=== PATIENT | female | born 1995 | race African-American/Black ===

== ENCOUNTER 2021-01-08 10:56 | Emergency (ER) | payer OTHER, SELFPAY ==
[2021-01-08] VITALS (13 sets, daily range): BP systolic 111–148; BP diastolic 73–89; PULSE 70–91; RESP 13–26; TEMP 36.4; O2SAT 93–100
--- NOTE | ~2021-01-08 | XR_ITS ---
EXAMINATION: XR chest 1V portable DATE: 01/08/2021 11:49 INDICATION: Mid chest pain. TECHNIQUE: frontal view of the chest was obtained. COMPARISON: None FINDINGS: The lungs are clear with no focal airspace opacities, pulmonary edema, pleural effusion or pneumothor ax. Borderline heart size accounting for AP technique. Mediastinal silhouette is normal. Moderate tho racic dextroscoliosis. 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 IMPRESSION: 1. Borderline heart size conifer AP technique. No acute cardiopulmonary disease. Reviewed, dictated and finalized at location A. IMPRESSION: 1. Borderline heart size conifer AP technique. No acute cardiopulmonary disease .
--- NOTE | 2021-01-08 11:18 | ECG_ITS ---
Measurements Intervals [place] Rate: 76 P: 13 PA: 161 QRS: 12 QRSD: 102 T: 10 QT: 381 QTc: 429 Interpretive Statements SINUS RHYTHM MINIMAL Q WAVES- HIGH LATERAL LEADS BORDERLINE T WAVE ABNORMALITY- ANT/INF LEADS BASELINE ARTIFACT- I, II, AVR, AVL, AVF BORDERLINE ECG Electronically Signed On 01-08-2021 16:51:22 CDT by Mazin Zaldivar D.O.
[2021-01-08] MEDS: KETOROLAC 30 MG/ML VIAL (*BKC) IV PUSH (11:42)
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
--- NOTE | 2021-01-08 12:10 | PC.NURSE ---
Attempt at blood collection unsuccessful per this RN. Pt on phone throughout EKG and labs face-timing with her s.o. pt gives permission for information to be shared with him.
[2021-01-08 12:42] LABS: Basophils Percent Auto 0.4 % (0.2-1.2); Eosinophils Percent Auto 0.5 % (0-4.4); Hematocrit 35.2 % (37.0-47.0); Hemoglobin 10.8 g/dL (12.0-15.0); Immature Granulocyte Absolute 0.03 K/mm3 (0.00-0.031); Immature Granulocyte Percent A 0.4 % (0-0.5); Lymphocytes Absolute Auto 1.29 K/mm3 (0.9-3.2); Lymphocytes Percent Auto 15.7 % (18.3-44.2); Mean Corpuscular HGB Conc 30.7 g/dl (32-36); Mean Corpuscular Hemoglobin 27.3 pg (26-34); Mean Corpuscular Volume 89.1 fl (80-100); Mean Platelet Volume 11.4 fl (7.4-10.4); Monocytes Absolute Auto 0.6 K/mm3 (0.1-0.6); Monocytes Percent Auto 7.1 % (2.6-8.5); Neutrophils Absolute Auto 6.2 K/mm3 (1.3-6.7); Neutrophils Percent Auto 75.9 % (45.5-73.1); Platelet Count Result 259 k/mm3 (150-375); Red Blood Count 3.95 M/mm3 (4.2-5.4); Red Cell Distribution Width 13.8 % (11.5-14.5); White Blood Count 8.2 K/mm3 (4.5-10.0)
[2021-01-08 12:52] LABS: INR 0.9; Partial Thromboplastin Time 31.9 SECONDS (22.3-36.8); Prothrombin Time 13.2 Seconds (11.1-14.7)
[2021-01-08 12:55] LABS: D Dimer 0.39 ug/mL (<0.48)
[2021-01-08 12:56] LABS: Alanine Aminotransferase 19 U/L (4-35); Albumin Level 3.8 g/dL (3.5-5.1); Alkaline Phosphatase 69 U/L (38-126); Anion Gap 2 mmol/L (8-16); Aspartate Amino Transferase 27 U/L (14-36); Bilirubin,Total 1.2 mg/dL (0.2-1.3); Blood Urea Nitrogen 12 mg/dL (7-17); Calcium 9.2 mg/dL (8.4-10.2); Carbon Dioxide 31 mmol/L (22-30); Chloride 104 mmol/L (98-107); Estimated CRCL calculation 137 ml/min; Estimated Glomerular Filt Rate > 60; Glucose 97 mg/dL (65-105); Lipase 21 U/L (23-300); Sodium 137 mmol/L (137-145)
[2021-01-08 12:58] LABS: Add Urine Microscopic? YES; Appearance Urine Cloudy (Clear); Bacteria Urine Trace /hpf; Bilirubin Urine Negative (Negative); Blood Urine Negative (Negative); Color Urine Yellow (Yellow); Glucose Urine UA Negative (Negative); Ketones Urine Negative (Negative); Leukocyte Esterase Ur Negative LEU/UL (Negative); Mucus Urine Few /lpf; Nitrate Urine Negative (Negative); Protein Urine Negative (Negative); RBC Urine 0-2 /hpf (0-2); Specific Grav Ur 1.018 (1.001-1.035); Squamous Epithelial Cell Urine Many /hpf (Few)
[2021-01-08 13:08] LABS: Troponin I < 0.012 ng/mL (0.000-0.034)
== END 2021-01-08 14:06 | disposition home or self-care (01) ==
PROVIDERS: Emergency Medicine Emergency Medical Services; Emergency Provider Emergency Medicine; PCP Family Medicine
DX: R07.2 Precordial pain (principal); E66.9 Obesity, unspecified; Z68.32 Body mass index [BMI] 32.0-32.9, adult; R94.31 Abnormal electrocardiogram [ECG] [EKG]
CPT/HCPCS: 36415; 71045; 80053; 81001; 81025; 83690; 84484; 85025; 85380; 85610; 85730; 87077; 87086; 87088; 87186; 93005; 96374; 99284; J1885

== ENCOUNTER 2022-07-13 14:19 | Emergency (ER) | payer OTHER, SELFPAY ==
--- NOTE | 2022-07-13 | ECG_ITS ---
Measurements Intervals [place] Rate: 57 P: 49 IA: 154 QRS: 26 QRSD: 94 T: -25 QT: 432 QTc: 423 Interpretive Statements SINUS BRADYCARDIA T WAVE ABNORMALITY IN ANTERIOR LEADS- CONSIDER ISCHEMIA ABNORMAL ECG COMPARED TO ECG 01/08/2021 11:59:40 HEART RATE HAS DECREASED T WAVE ABNORMALITY IN ANTERIOR LEADS- CONSIDER ISCHEMIA NOW PRESENT Electronically Signed On 07-14-2022 11:13:43 CDT by Mazin Zaldivar D.O.
[2022-07-13 14:33] VITALS: BP 113/64; PULSE 65; RESP 18; TEMP 36.3; O2SAT 99
--- NOTE | 2022-07-13 15:17 | ED.CHESTPAIN ---
HPI - Chest Pain General Chief Complaint: Chest Pain Stated Complaint: Chest Pain Time Seen by Provider: 07/13/22 15:10 Source: patient, RN notes reviewed and old records reviewed Mode of arrival: ambulatory Limitations: no limitations History of Present Illness HPI narrative: 26 year old female presents to [facility] care with complaints of 3 day history of intermittent sternal chest pain and tightness with orthopnea, she reports past history of pericarditis. Patient reports that she went by ambulance to [facility] last evening and left before she was given any final diagnosis of her pain, states that she had labs and EKG, and chest xray done and had negative COVID. Patient states that she sat in waiting area for many hours and it was getting dark so she went home. Patient able to pull information off of her portal and reviewed lab data with HGB 10,7/HCT 35.0 WBC 7.6, high sensitivity troponin <4. EKG data similar reading as of EKG done in clinic. Patient denies any nausea or vomiting or any dizziness, speaking in full sentences with no noted dyspnea SAO2 99% on room air. MD complaint: chest pain and other (orthopnea) Pertinent past history: coronary artery disease and other (pericarditis) Pain scale (0-10): 7 Treatment prior to arrival: none Related Data Allergies Allergy/AdvReac Type Severity Reaction Status Date / Time No Known Allergies Allergy Verified 01/08/21 11:06 Review of Systems Review of Systems: CONSTITUTIONAL: Denies fever, chills, or sweats. EYES: Denies visual changes, redness, or discharge. ENT: Denies rhinorrhea, congestion, sore throat, or otalgia. CARDIOVASCULAR: Positive for 3 day history of sternal chest pain, no palpitations, or edema. RESPIRATORY: Denies cough or dyspnea.reports orthopnea GASTROINTESTINAL: Denies abdominal pain, nausea, vomiting, or diarrhea. GENITOURINARY: Denies dysuria or hematuria. SKIN: Denies rash or itching. MUSCULOSKELETAL: Denies back pain, joint pain, or myalgia. NEUROLOGIC: Denies headache, numbness, or weakness. PSYCHIATRIC: Denies anxiety or depression. All systems reviewed & are unremarkable except as noted in HPI and below PMFSH Past Medical History Medical History (Updated 07/16/22 @ 00:00 by Background Daemon) Obesity Pericarditis Social History Social History Smoking status: Never smoker Gender identity (if verbalized by the patient): Female Comments At time of signature, agree with nursing past medical, surgical, social and family history. There is no relevant family history pertinent to the presenting complaint Exam Narrative: GENERAL: Well-appearing, well-nourished, and in no acute distress. HEAD: Normocephalic, atraumatic. EYES: PERRLA and EOMI. ENT: Nares clear, no rhinorrhea or epistaxis. Mucous membranes moist.TM's normal with good light reflex, throat pink with no lesions or swelling NECK: Supple.No lymphadenopathy CHEST: Clear to auscultation. No respiratory distress.SAO2 99% on room air HEART: Regular rate and rhythm. No murmur heard.no rubs or muffled heart sounds. Normal peripheral pulses. ABDOMEN: Soft, nontender, nondistended, normal active bowel sounds. EXTREMITIES: Normal range of motion. No edema. SKIN: Warm, dry, no rash. NEURO: No focal deficits. Alert and oriented x3. Course Course Level of Care: Express Care Visit Vital Signs Vital signs: Vital Signs Temperature 36.3 C L 07/13/22 14:33 Pulse Rate 65 07/13/22 14:33 Respiratory Rate 18 07/13/22 14:33 Blood Pressure 113/64 07/13/22 14:33 Pulse Oximetry 99 07/13/22 14:33 Oxygen Delivery Room Air 07/13/22 14:33 Temperature 36.3 C L 07/13/22 14:33 Pulse Rate 65 07/13/22 14:33 Respiratory Rate 18 07/13/22 14:33 Blood Pressure 113/64 07/13/22 14:33 Pulse Oximetry 99 07/13/22 14:33 Oxygen Delivery Room Air 07/13/22 14:33 Transfer Transfered to: [facility]: Other (private car
== END 2022-07-13 16:10 | disposition short-term general hospital (02) ==
LOC: EXPCOLL 14:26
PROVIDERS: Emergency Provider Registered Nurse; PCP Family Medicine
DX: R07.9 Chest pain, unspecified (principal); I25.10 Atherosclerotic heart disease of native coronary artery without angina pectoris; E66.9 Obesity, unspecified; Z68.31 Body mass index [BMI] 31.0-31.9, adult; R94.31 Abnormal electrocardiogram [ECG] [EKG]
CPT/HCPCS: 93005; 99213; G0463

== ENCOUNTER 2022-07-13 16:43 | Emergency (ER) | payer OTHER, SELFPAY ==
[2022-07-13] VITALS (9 sets, daily range): BP systolic 95–145; BP diastolic 62–72; PULSE 52–65; RESP 14–23; TEMP 36.2; O2SAT 100
--- NOTE | ~2022-07-13 | XR_ITS ---
XR chest 2V 07/13/2022 17:24 Indication: Chest pain for 3 days Procedure: PA and lateral views the chest Comparison: 01/08/2021 Findings: Cardiomegaly. Small pleural effusions. Left basilar atelectasis. No edema or pneumothorax. 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 There is scoliosis. Impression: 1: Left basilar atelectasis. 2: Small pleural effusions. Reviewed, dictated and finalized at location A. Impression: 1: Left basilar atelectasis. 2: Small pleural effusions.
--- NOTE | 2022-07-13 16:48 | ECG_ITS ---
Measurements Intervals [place] Rate: 58 P: 46 [place]: 147 QRS: 22 QRSD: 102 T: 7 QT: 425 QTc: 418 Interpretive Statements SINUS BRADYCARDIA T WAVE ABNORMALITY IN ANTERIOR LEADS- CONSIDER ISCHEMIA ABNORMAL ECG COMPARED TO ECG 01/08/2021 11:59:40 SINUS BRADYCARDIA NOW PRESENT T WAVE ABNORMALITY IN ANTERIOR LEADS- CONSIDER ISCHEMIA NOW PRESENT Electronically Signed On 07-13-2022 17:04:07 CDT by Mazin Zaldivar D.O.
[2022-07-13 17:18] LABS: Basophils Percent Auto 0.4 % (0.2-1.2); Eosinophils Absolute Auto 0.1 K/mm3 (0-0.3); Eosinophils Percent Auto 1.2 % (0-4.4); Hematocrit 36.9 % (37.0-47.0); Hemoglobin 11.2 g/dL (12.0-15.0); Immature Granulocyte Absolute 0.01 K/mm3 (0.00-0.031); Immature Granulocyte Percent A 0.1 % (0-0.5); Lymphocytes Absolute Auto 1.75 K/mm3 (0.9-3.2); Lymphocytes Percent Auto 23.2 % (18.3-44.2); Mean Corpuscular HGB Conc 30.4 g/dl (32-36); Mean Corpuscular Hemoglobin 27.3 pg (26-34); Mean Corpuscular Volume 89.8 fl (80-100); Mean Platelet Volume 12.5 fl (7.4-10.4); Monocytes Absolute Auto 0.5 K/mm3 (0.1-0.6); Monocytes Percent Auto 6.9 % (2.6-8.5); Neutrophils Absolute Auto 5.1 K/mm3 (1.3-6.7); Neutrophils Percent Auto 68.2 % (45.5-73.1); Platelet Count Result 276 k/mm3 (150-375); Red Blood Count 4.11 M/mm3 (4.2-5.4); Red Cell Distribution Width 14.6 % (11.5-14.5); White Blood Count 7.5 K/mm3 (4.5-10.0)
[2022-07-13 17:34] LABS: Alanine Aminotransferase 15 U/L (6-35); Albumin Level 4.6 g/dL (3.5-5.1); Alkaline Phosphatase 70 U/L (38-126); Anion Gap 12 mmol/L (8-16); Aspartate Amino Transferase 20 U/L (14-36); Bilirubin,Total 0.9 mg/dL (0.2-1.3); Blood Urea Nitrogen 14 mg/dL (7-17); Calcium 9.4 mg/dL (8.4-10.2); Carbon Dioxide 29 mmol/L (22-30); Chloride 99 mmol/L (98-107); Estimated Glomerular Filt Rate > 60; Glucose 105 mg/dL (65-110); Lipase 56 U/L (23-300); Potassium 3.8 mmol/L (3.4-5.0); Sodium 140 mmol/L (137-145)
--- NOTE | 2022-07-13 18:00 | PC.NURSE ---
EKG and lab draw delayed due to pt facetiming and not getting off her phone.
[2022-07-13 18:04] LABS: Troponin I < 0.012 ng/mL (0.000-0.034)
--- NOTE | 2022-07-13 18:55 | PC.NURSE ---
Dr. Rodriguez at bedside to assess pt.
--- NOTE | 2022-07-13 19:05 | ED.GENADULT ---
HPI - General Adult General Chief complaint: Chest Pain Stated complaint: Chest Pain Time Seen by Provider: 07/13/22 18:33 History of Present Illness HPI narrative: This is a 26-year-old female with a history of pericarditis presenting to ED with a chief complaint of chest pain. Patient states that she has been having chest pain for 1 week. She describes as a discomfort in the center of her chest. It is nonradiating. 6/10 in intensity it is worse with palpation. It is worse with movement. Patient says it gets worse when she lays flat. Patient has a history of pericarditis in the past. Patient went to [facility] the other day and had lab work obtained. These records were reviewed on her portal in all were within normal limits including CBC, CMP, high sensitivity troponin, EKG and chest x-rays. The patient then left before she was discharged because it was dark outside and she did want to be in [place]. Patient then went today to an urgent care where they are diagnostic capability was limited due to the facility. She was then sent here for an echocardiogram to evaluate for pericarditis /myocarditis. Related Data Allergies Allergy/AdvReac Type Severity Reaction Status Date / Time No Known Allergies Allergy Verified 01/08/21 11:06 Review of Systems Review of Systems: CONSTITUTIONAL: Denies night sweats. EYES: No eye pain ENT: Denies rhinorrhea CARDIOVASCULAR: Denies palpitations RESPIRATORY: Denies hemoptysis GASTROINTESTINAL: Denies hematemesis GENITOURINARY: Denies hematuria. SKIN: Denies rash MUSCULOSKELETAL: Denies myalgia. NEUROLOGIC: Denies weakness. PSYCHIATRIC: Denies delusions PMF Past Medical History Medical History (Updated 07/13/22 @ 19:25 by Evan Rodriguez MD) Obesity Pericarditis Social History Social History Smoking status: Never smoker Gender identity (if verbalized by the patient): Female Exam Narrative: APPEARANCE: No apparent distress. Head atraumatic. EYES: PERRLA/EOMI, NOSE: Normal no drainage NECK: Supple, Trachea midline RESPIRATORY: CTAB, No increased work of breathing. CARDIOVASCULAR: S1S2 appreciated, Patient has tenderness to palpation over the sternum. She has no overlying skin changes. She has no peripheral edema. no pericardial friction rub ABDOMINAL: Soft, nontender, nondistended, MUSCULOSKELETAl: No obvious deformities NEURO: Alert. Moving 4/4 extremities SKIN:: Warm, dry. Normal color PSYCHIATRIC: Normal affect Course Vital Signs Vital signs: Vital Signs Temperature 97.2 F L 07/13/22 17:30 Pulse Rate 59 L 07/13/22 17:30 Respiratory Rate 14 07/13/22 17:30 Blood Pressure 145/67 H 07/13/22 17:30 Pulse Oximetry 100 07/13/22 17:30 Temperature 97.2 F L 07/13/22 17:30 Pulse Rate 62 07/13/22 18:50 Respiratory Rate 17 07/13/22 18:33 Blood Pressure 119/72 07/13/22 18:20 Pulse Oximetry 100 07/13/22 18:50 Oxygen Delivery Room Air 07/13/22 18:50 Medical Decision Making MDM Narrative Medical decision making narrative: this is a 26-year-old female with history of pericarditis presenting ED with chest pain. The patient's history and physical is more consistent with musculoskeletal pain but she is highly anxious about having pericarditis again. Point of care echocardiogram was performed. Parasternal long, short axis, apical 4 and subxiphoid views were obtained. There is no evidence of pericardial effusion in any view. Ejection fraction is normal per ePSS. There is no evidence of right heart strain. IVC was depleted w/ >50% respiratory variation. Patient's laboratory studies were unremarkable. Her she has no white blood cell count. Her BNP was within normal limits. The patient is afebrile with normal vital signs. High since the troponins were negative yesterday [facility]. Normal sensitivity troponins here are negative. patient is PERC negative. Chest x-ray s
[2022-07-13] MEDS: KETOROLAC 15 MG/ML VIAL (*BKC) IV PUSH (19:18)
[2022-07-13] MEDS: ACETAMINOPHEN 500 MG TABLET 1000 MG PO (19:19)
[2022-07-13 19:34] LABS: NT Pro B Type Natriuretic Pept 52 pg/mL (5-100)
== END 2022-07-13 20:36 | disposition home or self-care (01) ==
PROVIDERS: Emergency Medicine; Emergency Provider Emergency Medicine; PCP Family Medicine
DX: R07.9 Chest pain, unspecified (principal); E66.9 Obesity, unspecified; Z68.31 Body mass index [BMI] 31.0-31.9, adult; I31.9 Disease of pericardium, unspecified; R00.1 Bradycardia, unspecified; R94.31 Abnormal electrocardiogram [ECG] [EKG]
CPT/HCPCS: 36415; 71046; 80053; 83690; 83880; 84484; 85025; 93005; 96374; 99284; A9270; J1885

== ENCOUNTER 2025-08-05 10:28 | Emergency (ER) | payer OTHER, SELFPAY ==
--- OUTSIDE RECORDS SUMMARY | 2025-08-04 21:50 | XMS_ITS | Encounter Summary ---
Author Organization 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 5/10 pain. Hasn't taken anything for symptoms. Denies N/V/D or dizziness. Encounter Details Date Type Department Care Team ([facility] Contact Info) Description 08/04/2025 9:50 PM CDT - 08/04/2025 9:58 PM CDT Emergency [facility] [address] [place] [id number] Chest pain, unspecified type Discharge Disposition: Left Against Medical Advice/Discontinued Care Social History Tobacco Use Types Packs/Day Years Used Date Smoking Tobacco: Never Smokeless Tobacco: Never Alcohol Use Standard Drinks/Week Comments Not Currently 0 (1 standard drink = 0.6 oz pur e alcohol) PHQ-2 Answer Date Recorded Patient Health Questionnaire-2 Score 0 01/18/2025 Comments No Sex and Gender Information Value Date Recorded Sex Assigned at Female 07/30/2024 1:34 AM CDT Legal Sex Female 2:58 PM CDT Gender Identity Female 07/30/2024 1:34 AM CDT Sexual Orientation Straight 07/30/2024 1: 34 AM CDT documented as of this encounter Last Filed Vital Signs Vital Sign Reading Time Taken Comments Blood Pressure 125/82 08/04/2025 6:26 PM CDT Pulse 74 08/04/2025 6:26 PM CDT Temperature 37.2 C (99 F) 08/04/2025 6:26 PM CDT Respiratory Rate 16 08/04/2025 6:26 PM CDT Oxygen Saturation 100% 08/04/2025 6:26 PM CDT Inhaled Oxygen Concentration - - Weight 81.6 kg (180 lb) 08/04/2025 6:26 PM CDT Height 165.1 cm (5' 5) 08/04/2025 6:26 PM CDT Body Mass Index 29.95 08/04/2025 6:26 PM CDT documented in this encounter Functional Status * Is person deaf or have serious hearing difficulty? Answer Date of Assessment Author No 10/12/2019 8:59 PM Ulises Posey APRN-DIONICIO * Is person blind or have serious difficulty seeing? Answer Date of Assessment Author No 10/12/2019 8:59 PM Ulises Posey APRN-DIONICIO * Does person have serious difficulty walking/climbing stairs? Answer Date of Assessment Author No 10/12/2019 8:59 PM Ulises Posey APRN-DIONICIO * Does person have difficulty dressing/bathing? Answer Date of Assessment Author No 10/12/2019 8:59 PM Ulises Posey APRN-DIONICIO * Does person have difficulty doing errands alone? Answer Date of Assessment Author No 10/12/2019 8:59 PM Ulises Posey APRN-DIONICIO documented as of this encounter Mental Status * Does person have difficulty concentrating/remembering/making decisions? Answer Entry Date Author No 10/12/2019 8:59 PM Ulises Posey APRN-ASSOCIATE MERCHANT documented in this encounter Medications at Time of Discharge famotidine (PEPCID) 20 MG tablet Take 1 tablet by mouth once daily 30 tablet 3 10/12/2019 fluconazole (Diflucan) 150 MG tablet Take 1 (one) tablet by mouth once daily 1 tablet 08/24/2022 ibuprofen (Motrin) 800 MG tablet Take 1 (one) tablet by mouth every 6 hours as needed for Pain 30 tablet 10/06/2022 ketorolac (Toradol) 10 MG tablet Take 1 (one) tablet by mouth every 6 hours as needed for Pain 20 tablet 06/06/2023 lidocaine (Lidoderm) 5 % patch Apply 1 (one) patch to skin once daily Apply patch to most painful area and remove after 12 hours. May reapply a new patch 12 hours later. 5 patch 06/06/2023 metaxalone (Skelaxin) 800 MG tablet Take 1 (one) tablet by mouth 3 times daily as needed for Muscle Spasms 21 tablet 06/06/2023 Vit-Fe Fumarate-FA ( VITAMIN) 28-0.8 MG tablet Take 1 tablet by mouth once daily documented as of this encounter ED Notes * Jae Davidaugustus - 08/04/2025 9:48 PM CDT Patient left walking with a steady gait and is A&O x4, patient signed and completed an AMA form. * Fadia Ardon PA-C - 08/04/2025 6:42 PM CDT Medical Screening Exam 08/04/2025 6:42 PM Provider contact with the patient Rosy Pierson CC: Chest Pain (BIBself CP x 2 days, stabbing pain when breathing and laying down. 5/10 pain. Hasn't taken anything for symptoms. Denies N/V/D or dizziness. ) Chief complaint narrative was entered by triage nurse, not by provider Provider in Triage HPI: Rosy Pierson is a 29 year old female PMH as noted below who presents with chest pain x 2 days, stabbing feeling worse with supine positron. Illness 3 weeks ago. Denies N/Vabdominal pain, FREIRE. Limited Chart History: Past Medical History[1] Past Surgical History[2] Medications[3] Allergies[4] PCP: JOLENE SMILEY (Above may be pending completion) Primary System Noted in HPI. All other systems reviewed and are negative. Vital Signs reviewed in Triage BP 125/82 Pulse 74 Temp 99 ??F (37.2 ??C) Resp 16 Ht 1.651 m (5' 5) Wt 81.6 kg (180 lb) SpO2 100% Pertinent Physical Findings: Constitutional: vitals as above, groomed non toxic Head: Head normocephalic, atraumatic Eyes: conjunctiva clear ENT: no rhinorrhea Resp: respirations even and unlabored, CV: Heart RRR, Abd: nondistended Skin: warm, dry,color normal for ethnicity MSK: ambulatory, moves all extremities Neuro: A&O x 3, Psych: Normal affect Complete physical exam is limited due to patient sitting in up right position in chair MDM: I have reviewed all lab and imaging resulted ordered during this visit and available at the time ofthis note. Triage notes and available nursing notes reviewed. Previous medical record reviewed whenavailable. Management options include but not limited to: physical exam, laboratory testing, discussion with other providers. Clinical Impression: Chest pain Based on the Medical Screening Exam performed and diagnostic tests at this time, further evaluationis indicated and will be performed. Patient will be transferred to a main ED room when one is available and care will be transferred to ER provider. Fadia Ardon PA-C [1] Past Medical History: Diagnosis Date Scoliosis [2] No past surgical history on file. [3] Current Facility-Administered Medications Medication Dose Route Frequency Provider Last Rate Last Admin 0.9% NaCl injection 3 mL 3 mL Intracatheter q8h Fadia Ardon PA-C And 0.9% NaCl injection 1-10 mL 1-10 mL Intracatheter PRN Fadia Ardon PA-C acetaminophen (Tylenol) tablet 1,000 mg 1,000 mg Oral Now Fadia Ardon PA-C Current Outpatient Medications Medication Sig Dispense Refill famotidine (PEPCID) 20 MG tablet Take 1 tablet by mouth once daily 30 tablet 3 fluconazole (Diflucan) 150 MG tablet Take 1 (one) tablet by mouth once daily 1 tablet 0 ibuprofen (Motrin) 800 MG tablet Take 1 (one) tablet by mouth every 6 hours as needed for Pain 30 tablet 0 ketorolac (Toradol) 10 MG tablet Take 1 (one) tablet by mouth every 6 hours as needed for Pain 20 tablet 0 lidocaine (Lidoderm) 5 % patch Apply 1 (one) patch to skin once daily Apply patch to most painful area and remove after 12 hours. May reapply a new patch 12 hours later. 5 patch 0 metaxalone (Skelaxin) 800 MG tablet Take 1 (one) tablet by mouth 3 times daily as needed for MuscleSpasms 21 tablet 0 Vit-Fe Fumarate-FA ( VITAMIN) 28-0.8 MG tablet Take 1 tablet by mouth once daily [4] No Known Allergies documented in this encounter Plan of Treatment Pending Results Name Type Priority Associated Diagnoses Date /Time EKG 12-Lead ECG Routine Chest pain, unspecified type 08/04/2025 6:29 PM CDT documented as of this encounter Procedures Procedure Name Priority Date/Time Associated Diagnosis Comments CARDIAC EKG ORDER 08/05/2025 11: 35 AM CDT TROPONIN-I HIGH SENSITIVE REFLEX 1HOUR Timed 08/04/2025 9:35 PM CDT TROPONIN-I HIGH SENSITIVE BASELINE + 1HR STAT 08/04/2025 7:00 PM CDT CBC W AUTO DIFFERENTIAL STAT 08/04/2025 7:00 PM CDT COMPREHENSIVE METABOLIC PANEL STAT 08/04/2025 7:00 PM CDT HCG BETA BLOOD QUANTITATIVE STAT 08/04/2025 7:00 PM CDT MAGNESIUM BLOOD STAT 08/04/2025 7:00 PM CDT EKG 12-LEAD Routine 08/04/2025 6:29 PM CDT Chest pain, unspecified type documented in this encounter Results * CARDIAC EKG ORDER (08/05/2025 11:35 AM CDT) Narrative 08/05/2025 11:35 AM CDT Ordered by an unspecified provider. us Scanned Document CARDIAC SERVICES ORDERABLES Fin al Result * TROPONIN-I HIGH SENSITIVE REFLEX 1HOUR (08/04/2025 9:35 PM CDT) Troponin I High Sensitive <3 <=14 ng/L 08/04/2025 10:15 PM CDT [facility] Delta Troponin I HS 08/04/2025 10:15 PM CDT [facility] Comment:Delta value intentio anisha not calculated. Baseline to 1 hour specimen collection interval exceeded. Blood BLOOD SPECIMEN / Unknown Venipuncture / Unknown 08/04/2025 9:35 PM CDT 08/04/2025 9:40 PM CDT Fadia Ardon PA-C LAB - CHEMISTRY ORDER TIM Final Result Performing Organization Address [facility] de Phone Number [address] [address], [facility] [phone] * HCG BETA BLOOD QUANTITATIVE (08/04/2025 7:00 PM CDT) [facility] Beta-hCG Total Quantitative <3 mIU/mL 08/04/2025 7:47 PM CDT [facility] Comment: HCG Numeric Result Interpretation: Non- Females: < 5 mIU/mL Post-Menopausal Females: < 7 mIU/mL This assay is cleared for use in the early detection of only. It is not approved for any other uses such as tumor marker screening, tumor marker monitoring, etc. and should not be used for any other purposes. Blood BLOOD SPECIMEN / Unknown Venipuncture / Unknown 08/04/2025 7:00 PM CDT 08/04/2025 7:14 PM CDT Fadia Ardon PA-C LAB - CHEMISTRY ORDER TIM Final Result Performing Organization Address [facility] Co de Phone Number [address] [address], [facility] [phone] * TROPONIN-I HIGH SENSITIVE BASELINE + 1HR (08/04/2025 7:00 PM CDT) [facility] Troponin I High Sensitive <3 <=14 ng/L 08/04/2025 7:47 PM CDT [facility] Blood BLOOD SPECIMEN / Unknown Venipuncture / Unknown 08/04/2025 7:00 PM CDT 08/04/2025 7:14 PM CDT Fadia Ardon PA-C LAB - CHEMISTRY ORDER TIM Final Result [address] [address], [facility] [phone] * MAGNESIUM BLOOD (08/04/2025 7:00 PM CDT) Magnesium 1.6 1.6 - 2.6 mg/dL 08/04/2025 7:44 PM T [facility] Blood BLOOD SPECIMEN / Unknown Venipuncture / Unknown 08/04/2025 7:00 PM CDT 08/04/2025 7:14 PM CDT Fadia Ardon PA-C LAB - CHEMISTRY ORDER TIM Final Result Performing Organization Address [facility]/ZIP Co de Phone Number [address] [address], [facility] [phone] * (ABNORMAL) COMPREHENSIVE METABOLIC PANEL (08/04/2025 7:00 PM CDT) BUN 14 7 - 26 mg/dL 08/04/2025 7:44 PM [facility] Creatinine 0.76 0.56 - 0.96 mg/dL 08/04/2025 7:44 PM [facility] Sodium 137 136 - 145 mmol/L 08/04/2025 7:44 PM [facility] Potassium 3.9 3.5 - 4.5 mmol/L 08/04/2025 7:44 PM [facility] Chloride 104 98 - 107 mmol/L 08/04/2025 7:44 PM [facility] CO2 24 22 - 29 mmol/L 08/04/2025 7:44 PM [facility] Glucose 113(H) 70 - 99 mg/dL 08/04/2025 7:44 PM [facility] Calcium 9.1 8.4 - 10.2 mg/dL 08/04/2025 7:44 PM [facility] Protein Total 7.1 6.0 - 8.3 g/dL 08/04/2025 7:44 PM [facility] Albumin 4.0 3.4 - 5.0 g/dL 08/04/2025 7:44 PM [facility] Bilirubin Total 0.9 0.2 - 1.2 mg/dL 08/04/2025 7:44 PM [facility] Alkaline Phosphatase 66 40 - 150 U/L 08/04/2025 7:44 PM [facility] ALT 15 5 - 55 U/L 08/04/2025 7:44 PM [facility] AST 16 5 - 34 U/L 08/04/2025 7:44 PM [facility] Anion Gap 9 6 - 16 08/04/2025 7:44 PM [facility] BUN/Creatinine Ratio 18 7 - 23 08/04/2025 7:44 PM [facility] Osmolality Calculated 285 275 - 295 mOsm/kg 08/04/2025 7:44 PM [facility] Albumin/Globulin Ratio 1.3 1.1 - 2.3 08/04/2025 7:44 PM [facility] eGFR by CKD-EPI >90 >=90 mL/min/1.7 3 m2 08/04/2025 7:44 PM [facility] Comment:Estimated Glomerular Filtration Rate (eGFR) calculated using the CKD-EPI Creatinine Equation (2020), per the National Kidney Foundation and [place] [employer]ph[employer] recommendations. Blood BLOOD SPECIMEN / Unknown Venipuncture / Unknown 08/04/2025 7:00 PM CDT 08/04/2025 7:14 PM CDT Fadia Ardon PA-C LAB - CHEMISTRY ORDER TIM Final Result [facility] [address] [place] [address], [facility] [phone] * (ABNORMAL) CBC W AUTO DIFFERENTIAL (08/04/2025 7:00 PM CDT) WBC 8.2 4.0 - 10.7 x10E9/L 08/04/2025 7:41 PM [facility] RBC Count 3.83(L) 3.90 - 5.20 x10E12/L 08/04/2025 7:41 PM [facility] Hemoglobin 10.4(L) 11.9 - 15.8 g/dL 08/04/2025 7:41 PM [facility] Hematocrit 33.2(L) 34.8 - 46.1 % 08/04/2025 7:41 PM [facility] MCV 86.7 80.0 - 98.0 fL 08/04/2025 7:41 PM [facility] MCH 27.2 26.7 - 33.6 pg 08/04/2025 7:41 PM [facility] MCHC 31.3(L) 31.7 - 36.3 g/dL 08/04/2025 7:41 PM [facility] RDW-CV 14.1 11.3 - 14.8 % 08/04/2025 7:41 PM [facility] Platelet Count 212 150 - 420 x10E9/L 08/04/2025 7:41 PM [facility] MPV 12.8(H) 7.8 - 11.4 fL 08/04/2025 7:41 PM [facility] Neutrophil % 65.4 41.0 - 74.0 % 08/04/2025 7:41 PM [facility] Lymphocyte % 26.2 17.0 - 47.0 % 08/04/2025 7:41 PM [facility] Monocyte % 7.0 3.0 - 11.0 % 08/04/2025 7:41 PM [facility] Eosinophil % 0.7 0.0 - 7.0 % 08/04/2025 7:41 PM [facility] Basophil % 0.2 0.0 - 1.6 % 08/04/2025 7:41 PM [facility] Immature Granulocytes % 0.5 0.0 - 1.0 % 08/04/2025 7:41 PM [facility] Neutrophil Absolute 5.36 1.60 - 7.50 x10E9/L 08/04/2025 7:41 PM [facility] Lymphocyte Absolute 2.15 1.00 - 4.40 x10E9/L 08/04/2025 7:41 PM CDT [facility] Monocyte Absolute 0.57 0.15 - 1.00 x10E9/L 08/04/2025 7:41 PM CDT [facility] Eosinophil Absolute 0.06 0.00 - 0.60 x10E9/L 08/04/2025 7:41 PM CDT [facility] Basophil Absolute 0.02 0.00 - 0.13 x10E9/L 08/04/2025 7:41 PM CDT [facility] Blood BLOOD SPECIMEN / Unknown Venipuncture / Unknown 08/04/2025 7:00 PM CDT 08/04/2025 7:14 PM CDT Fadia Ardon PA-C LAB - HEMATOLOGY [facility] [place] Final Result [facility] [address] [place] [address], [facility] [phone] documented in this encounter Visit Diagnoses Diagnosis Chest pain, unspecified type documented in this encounter Administered Medications Inactive Administered Medications - up to 3 most recent administrations Medication Order MAR Action Action Date Dose Rate Site 0.9% NaCl injection 1-10 mL 1-10 mL, Intracatheter, PRN, Other, peripheral line flush, Starting on Sat08/04/25 at 1841, Until Sat08/04/25 at 2259, Flush peripheral IV catheter with 1-10 mL of normal saline before and after medications and prn to clear blood from the line or to verify patency. 0.9% NaCl injection 3 mL 3 mL, Intracatheter, EVERY 8 HOURS, First dose on Sat08/04/25 at 2200, Until Discontinued, Flush peripheral IV catheter with 3 mL of normal saline every 8 hours. acetaminophen (Tylenol) tablet 1,000 mg 1,000 mg, Oral, NOW, 1 dose, On Sat08/04/25 at 1845, Patient preference for lesser PRN pain meds may be honored when the patient requests a less strong medication, a lower dose, or a less intrusive route of administration when the lesser drug, dose and route have been ordered for the patient. This patient request must be documented in the MAR. If both oral and IV options are ordered for the same pain severity, give oral first unless patient cannot tolerate oral intake. $ Given 08/04/2025 6:59 PM CDT 1,000 mg documented in this encounter Active and Recently Administered Medications Times are shown in CDT. Scheduled Medication Order 08/02/2025 08/03/2025 08/04/2025 0.9% NaCl injection 3 mL(Linked Group 1) 3 mL, Intracatheter, EVERY 8 HOURS, First dose on Sat08/04/25 at 2200, Until Discontinued, Flush peripheral IV catheter with 3 mL of normal saline every 8 hours. acetaminophen (Tylenol) tablet 1,000 mg (COMPLETED) 1,000 mg, Oral, NOW, 1 dose, On Sat08/04/25 at 1845, Patient preference for lesser PRN pain meds may be honored when the patient requests a less strong medication, a lower dose, or a less intrusive route of administration when the lesser drug, dose and route have been ordered for the patient. This patient request must be documented in the MAR. If both oral and IV options are ordered for the same pain severity, give oral first unless patient cannot tolerate oral intake. 185 ($ Given - Prov ider: Yossi Yuen RN) PRN Medication Order 08/02/2025 08/03/2025 08/04/2025 0.9% NaCl injection 1-10 mL(Linked Group 1) 1-10 mL, Intracatheter, PRN, Other, peripheral line flush, Starting on Sat08/04/25 at 1841, Until Sat08/04/25 at 2259, Flush peripheral IV catheter with 1-10 mL of normal saline before and after medications and prn to clear blood from the line or to verify patency. Linked Groups Order Group 1: SALINE LOCK, INSERT AND MAINTAIN (CANCELED) Routine, CONTINUOUS, Starting on Sat08/04/25 at 1845, Until Specified, New collection, Task Completed: Yes And 0.9% NaCl injection 3 mLJump to med 3 mL, Intracatheter, EVERY 8 HOURS, First dose on Sat08/04/25 at 2200, Until Discontinued, Flush peripheral IV catheter with 3 mL of normal saline every 8 hours. And 0.9% NaCl injection 1-10 mLJump to med 1-10 mL, Intracatheter, PRN, Other, peripheral line flush, Starting on Sat08/04/25 at 1841, Until Sat08/04/25 at 2259, Flush peripheral IV catheter with 1-10 mL of normal saline before and after medications and prn to clear blood from the line or to verify patency. documented in this encounter Care Teams Piped Buttonhole Machine Operator Relationship Specialty Start Date End Date Jolene Smiley [address] [place] [address] PCP - General 12/05/23 documented as of this encounter
--- NOTE | ~2025-08-05 | XR_ITS ---
EXAMINATION: XR chest 2V, 08/05/2025 11:00 CDT HISTORY: chest pain COMPARISON: No comparisons available. Technique: 2 views obtained. Findings: The lungs are clear, no effusion. No pneumothorax. Heart is normal size. Mediastinal and hilar contours are within normal limits. Scoliosis of the thoracic spine. Impression: No acute cardiopulmonary abnormality. Reviewed, dictated and finalized at location P. Impression: No acute cardiopulmonary abnormality.
[2025-08-05 10:29] VITALS: BP 127/68; PULSE 78; RESP 16; TEMP 36.4; O2SAT 98
--- NOTE | 2025-08-05 10:29 | ECG_ITS ---
Test Date: 2025-08-05 10:34:22 Measurements Intervals [place] Rate: 67 P: 30 MN: 149 QRS: 22 QRSD: 91 T: -4 QT: 393 QTc: 416 Interpretive Statements SINUS RHYTHM MODERATE T-WAVE ABNORMALITY, CONSIDER ANTERIOR ISCHEMIA BASELINE ARTIFACT- I, II, III, AVR ABNORMAL ECG No previous ECG available for comparison Electronically Signed On 08-05-2025 14:40:28 CDT by Mazin Zaldivar D.O.
[2025-08-05 10:49] LABS: Hematocrit 35.5 % (37.0-47.0); Hemoglobin 10.7 g/dL (12.0-15.0); Immature Granulocyte Percent A 0.3 % (0-0.5); Lymphocytes Absolute Auto 1.70 K/mm3 (0.9-3.2); Mean Corpuscular HGB Conc 30.1 g/dl (32-36); Mean Corpuscular Hemoglobin 26.9 pg (26-34); Mean Corpuscular Volume 89.2 fl (80-100); Nucleated Red Blood Cells Absolute Auto 0.000 K/mm3 (0.0-0.012); Nucleated Red Blood Cells Perc 0.0 % (0.0-0.2); Platelet Count Result 216 k/mm3 (150-375); Red Blood Count 3.98 M/mm3 (4.2-5.4); White Blood Count 7.5 K/mm3 (4.5-10.0)
[2025-08-05 11:05] LABS: Alanine Aminotransferase 20 U/L (6-35); Albumin Level 4.1 g/dL (3.5-5.1); Alkaline Phosphatase 69 U/L (38-126); Anion Gap 7 mmol/L (4-12); Aspartate Amino Transferase 25 U/L (14-36); Bilirubin,Total 1.3 mg/dL (0.2-1.3); Blood Urea Nitrogen 12 mg/dL (7-17); Calcium 9.1 mg/dL (8.4-10.2); Carbon Dioxide 27 mmol/L (22-30); Chloride 103 mmol/L (98-107); Estimated CRCL calculation 109 ml/min; Estimated Glomerular Filt Rate > 60; Glucose 99 mg/dL (65-110); Lipase 46 U/L (23-300); Potassium 4.0 mmol/L (3.4-5.0); Sodium 137 mmol/L (137-145); Total Protein 7.6 g/dL (6.3-8.2)
[2025-08-05 11:09] LABS: INR 1.0; Prothrombin Time 13.4 Seconds (11.1-14.7)
[2025-08-05 11:10] LABS: Partial Thromboplastin Time 30.5 Seconds (22.3-36.8)
[2025-08-05 11:12] LABS: Troponin I < 0.012 ng/mL (0.000-0.034)
--- NOTE | 2025-08-05 12:07 | ED_ITS ---
HPI - Chest Pain General Chief Complaint: Chest Pain <Ketty Shay PA-C - Last Filed: 08/05/25 19:15> Stated Complaint: chest pain <Ketty Shay PA-C - Last Filed: 08/05/25 19:15> Time Seen by Provider: 08/05/25 12:07 <Ketty Shay PA-C - Last Filed: 08/05/25 19:15> Focused HPI: This is a 29 year old female that presents to the ER for chest pain. Ongoing over the last couple of days. Worse with exertion, lying flat. Reports the pain is a pressure. Worse with breathing. No recent travel or surgery. GENERAL: Well-appearing, well-nourished, and in no acute distress. HEAD: Normocephalic, atraumatic. CHEST: Clear to auscultation. ?No respiratory distress. HEART: Regular rate and rhythm.? NEURO: ?Alert and oriented x3. Patient screened in triage and initial orders placed.? ?Additional care and disposition to be based upon?diagnostic testing and treatment. <Ketty Shay PA-C - Last Filed: 08/05/25 19:15> Focused HPI: This is a 29 year old female that presents to the ER for chest pain. Ongoing over the last couple of days. Worse with exertion, lying flat. Reports the pain is a pressure. Worse with breathing. No recent travel or surgery. GENERAL: Well-appearing, well-nourished, and in no acute distress. HEAD: Normocephalic, atraumatic. CHEST: Clear to auscultation. ?No respiratory distress. HEART: Regular rate and rhythm.? NEURO: ?Alert and oriented x3. Patient screened in triage and initial orders placed.? ?Additional care and disposition to be based upon?diagnostic testing and treatment. <SILVIA Peterson Last Filed: 08/05/25 17:39> Source: patient <SILVIA Peterson Last Filed: 08/05/25 17:39> Mode of arrival: ambulatory <SILVIA Peterson Last Filed: 08/05/25 17:39> Limitations: no limitations <Jannette Cunningham PA-C - Last Filed: 08/05/25 17:39> History of Present Illness HPI narrative: Agree with above HPI. Was seen at [facility] yesterday. Denies recent cough or cold symptoms. <Jannette Cunningham PA-C - Last Filed: 08/05/25 17:39> Related Data Allergies/Adverse Reactions: Allergies Allergy/AdvReac Type Severity Reaction Status Date / Time No Known Allergies Allergy Verified 01/08/21 11:06 <Ketty Shay PA-C - Last Filed: 08/05/25 19:15> Review of Systems 2 Review of Systems: All systems reviewed & are unremarkable except as noted in HPI. <Jannette Cunningham PA-C - Last Filed: 08/05/25 17:39> All systems reviewed & are unremarkable except as noted in HPI and below < Jannette Cunningham PA-C - Last Filed: 08/05/25 17:39> PMFSH Past Medical History Medical History: Medical History Pericarditis Obesity <Ketty Shay PA-C - Last Filed: 08/05/25 19:15> Social History Social History: Social History Smoking status: Never smoker Gender identity (if verbalized by the patient): Female <Ketty Shay PA-C - Last Filed: 08/05/25 19:15> Exam 2 Narrative: GENERAL: Well appearing, well-nourished, non-toxic, in no acute distress. HEAD: Normocephalic, atraumatic. RESPIRATORY: Airway patent, respirations nonlabored. Clear to auscultation bilaterally, no rales, rhonchi, wheezing. No focal lung sounds CARDIOVASCULAR: Regular rate and rhythm without murmurs, rubs, or gallops. MUSCULOSKELETAL: Moves all extremities. No gross deformities. Tenderness to palpation diffusely throughout midsternal chest, reproducing pain SKIN: Warm, dry, normal color. NEURO: A&O X3. Speech clear. Cranial nerves II-XII grossly intact. Steady gait. No ataxic movements. PSYCHIATRIC: Appropriate mood and affect. Normal interaction. <SILVIA Peterson Last Filed: 08/05/25 17:39> Course Vital Signs Vital signs: Vital Signs Temperature 97.6 F 08/05/25 10:29 Pulse Rate 78 08/05/25 10:29 Respiratory Rate 16 08/05/25 10:29 Blood Pressure 127/68 08/05/25 10:29 Pulse Oximetry 98 08/05/25 10:29 Temperature 97.6 F 08/05/25 10:29 Pulse Rate 63 08/05/25 14:15 Respiratory Rate 18 08/05/25 14:15 Blood Pressure 113/67 08/05/25 14:15 Pulse Oximetry 100 08/05/25 14:15 <SILVIA Fisher Last Filed: 08/05/25 19:15> Vital Signs Temperature 97.6 F 08/05/25 10:29 Pulse Rate 78 08/05/25 10:29 Respiratory Rate 16 08/05/25 10:29 Blood Pressure 127/68 08/05/25 10:29 Pulse Oximetry 98 08/05/25 10:29 Temperature 97.6 F 08/05/25 10:29 Pulse Rate 63 08/05/25 14:15 Respiratory Rate 18 08/05/25 14:15 Blood Pressure 113/67 08/05/25 14:15 Pulse Oximetry 100 08/05/25 14:15 <SILVIA Peterson Last Filed: 08/05/25 17:39> MDM - Chest Pain MDM Narrative Medical decision making narrative: EKG with some nonspecific ST changes. Baseline troponin negative HEART score 1 based on ekg, no other significant RFs for CAD D-dimer within normal range BNP WNL Chest x-ray clear Basic laboratory studies otherwise unremarkable 3 hour EKG without interval changes. 3 hour troponin undetectable. Very low suspicion for ACS at this time. Feel patient is safe for discharge home with outpatient follow-up with PCP for continued evaluation. Discussed possibility of costochondritis, patient is very tender along midsternal chest wall. Recommended she continue Tylenol/ibuprofen as needed for pain. Discussed return precautions. She voiced understanding. Discharged in stable condition. <SILVIA Peterson Last Filed: 08/05/25 17:39> Medical Records Data Attestation: I reviewed the patient's medical records. <Jannette Cunningham PA-C - Last Filed: 08/05/25 17:39> Lab Data Attestation: I reviewed the patient's lab results. <Jannette Cunningham PA-C - Last Filed: 08/05/25 17:39> Result diagrams: 08/05/25 10:40 08/05/25 10:40 <Ketty Shay PA-C - Last Filed: 08/05/25 19:15> Labs: Lab Results 08/05/25 08/05/25 Range/Units 10:40 14:04 WBC 7.5 (4.5-10.0) K/mm3 RBC 3.98 L (4.2-5.4) M/mm3 Hgb 10.7 L (12.0-15.0) g/dL Hct 35.5 L (37.0-47.0) % MCV 89.2 (80-100) fl MCH 26.9 (26-34) pg MCHC 30.1 L (32-36) g/dl RDW 14.2 (11.5-14.5) % Plt Count 216 (150-375) k/mm3 MPV 12.1 H (7.4-10.4) fl Immature Gran % (Auto) 0.3 (0-0.5) % Neut % (Auto) 69.5 (45.5-73.1) % Lymph % (Auto) 22.8 (18.3-44.2) % Tyrrell % (Auto) 6.2 (2.6-8.5) % Eos % (Auto) 0.8 (0-4.4) % Baso % (Auto) 0.4 (0.2-1.2) % Lymph # (Auto) 1.70 (0.9-3.2) K/mm3 Tyrrell # (Auto) 0.5 (0.1-0.6) K/mm3 Eos # (Auto) 0.1 (0-0.3) K/mm3 Baso # (Auto) 0.0 (0.0-0.1) K/mm3 Abs Immat Gran (auto) 0.02 (0.00-0.031) K/mm3 Absolute Neuts (auto) 5.2 (1.3-6.7) K/mm3 Absolute Nucleated RBC 0.000 (0.0-0.012) K/mm3 Nucleated RBC % 0.0 (0.0-0.2) % PT 13.4 (11.1-14.7) Seconds INR 1.0 APTT 30.5 (22.3-36.8) Seconds D-Dimer 0.42 (<0.48) ug/mL Sodium 137 (137-145) mmol/L Potassium 4.0 (3.4-5.0) mmol/L Chloride 103 (98-107) mmol/L Carbon Dioxide 27 (22-30) mmol/L Anion Gap 7 (4-12) mmol/L BUN 12 (7-17) mg/dL Creatinine 0.60 L (0.7-1.0) mg/dL Estim Creat Clear Calc 109 ml/min Estimated GFR > 60 (59 - ) Glucose 99 (65-110) mg/dL Calcium 9.1 (8.4-10.2) mg/dL Total Bilirubin 1.3 (0.2-1.3) mg/dL AST 25 (14-36) U/L ALT 20 (6-35) U/L Alkaline Phosphatase 69 (38-126) U/L Troponin I < 0.012 < 0.012 (0.000-0.034) ng/mL NT-Pro-B Natriuret Pep < 20 (19.9-100) pg/mL Total Protein 7.6 (6.3-8.2) g/dL Albumin 4.1 (3.5-5.1) g/dL Lipase 46 (23-300) U/L <Ketty Shay PA-C - Last Filed: 08/05/25 19:15> Lab Results 08/05/25 08/05/25 Range/Units 10:40 14:04 WBC 7.5 (4.5-10.0) K/mm3 RBC 3.98 L (4.2-5.4) M/mm3 Hgb 10.7 L (12.0-15.0) g/dL Hct 35.5 L (37.0-47.0) % MCV 89.2 (80-100) fl MCH 26.9 (26-34) pg MCHC 30.1 L (32-36) g/dl RDW 14.2 (11.5-14.5) % Plt Count 216 (150-375) k/mm3 MPV 12.1 H (7.4-10.4) fl Immature Gran % (Auto) 0.3 (0-0.5) % Neut % (Auto) 69.5 (45.5-73.1) % Lymph % (Auto) 22.8 (18.3-44.2) % Tyrrell % (Auto) 6.2 (2.6-8.5) % Eos % (Auto) 0.8 (0-4.4) % Baso % (Auto) 0.4 (0.2-1.2) % Lymph # (Auto) 1.70 (0.9-3.2) K/mm3 Tyrrell # (Auto) 0.5 (0.1-0.6) K/mm3 Eos # (Auto) 0.1 (0-0.3) K/mm3 Baso # (Auto) 0.0 (0.0-0.1) K/mm3 Abs Immat Gran (auto) 0.02 (0.00-0.031) K/mm3 Absolute Neuts (auto) 5.2 (1.3-6.7) K/mm3 Absolute Nucleated RBC 0.000 (0.0-0.012) K/mm3 Nucleated RBC % 0.0 (0.0-0.2) % PT 13.4 (11.1-14.7) Seconds INR 1.0 APTT 30.5 (22.3-36.8) Seconds D-Dimer 0.42 (<0.48) ug/mL Sodium 137 (137-145) mmol/L Potassium 4.0 (3.4-5.0) mmol/L Chloride 103 (98-107) mmol/L Carbon Dioxide 27 (22-30) mmol/L Anion Gap 7 (4-12) mmol/L BUN 12 (7-17) mg/dL Creatinine 0.60 L (0.7-1.0) mg/dL Estim Creat Clear Calc 109 ml/min Estimated GFR > 60 (59 - ) Glucose 99 (65-110) mg/dL Calcium 9.1 (8.4-10.2) mg/dL Total Bilirubin 1.3 (0.2-1.3) mg/dL AST 25 (14-36) U/L ALT 20 (6-35) U/L Alkaline Phosphatase 69 (38-126) U/L Troponin I < 0.012 < 0.012 (0.000-0.034) ng/mL NT-Pro-B Natriuret Pep < 20 (19.9-100) pg/mL Total Protein 7.6 (6.3-8.2) g/dL Albumin 4.1 (3.5-5.1) g/dL Lipase 46 (23-300) U/L <Jannette Cunningham PA-C - Last Filed: 08/05/25 17:39> Imaging Data Attestation: I personally reviewed and interpreted this imaging study as follows: < Jannette Cunningham PA-C - Last Filed: 08/05/25 17:39> Radiologist's impression: ITS Impressions Chest X-Ray 08/05/25 11:08 Impression: No acute cardiopulmonary abnormality. <Jannette Cunningham PA-C - Last Filed: 08/05/25 17:39> ECG Data EKG #1: Attestation: I personally reviewed and interpreted this ECG as follows: <Jannette Cunningham PA-C - Last Filed: 08/05/25 17:39> ECG completion date: 08/05/25 <Jannette Cunningham PA-C - Last Filed: 08/05/25 17:39> ECG completion time: 10:34 <Jannette Cunningham PA-C - Last Filed: 08/05/25 17:39> EKG Interpretation: normal rate (67), sinus rhythm and non-specific ST changes <SILVIA Peterson Last Filed: 08/05/25 17:39> Critical Care Time Critical Care Time Critical Care Time: No <SILVIA Fisher Last Filed: 08/05/25 19:15> Discharge Plan Discharge Clinical Impression: Atypical chest pain <SILVIA Fisher Last Filed: 08/05/25 19:15> Patient Disposition: Home <SILVIA Fisher Last Filed: 08/05/25 19:15> Condition: Stable <SILVIA Fisher Last Filed: 08/05/25 19:15> Instructions: Antibiotic Form, Chest Pain (ED), Costochondritis (ED) <SILVIA Fisher Last Filed: 08/05/25 19:15> Additional Instructions: Your work up here was reassuring against a cardiac cause of your chest pain. Continue Tylenol/ibuprofen as needed for pain. Follow up with your primary care doctor for further evaluation. Return to the ED for new or worsening concerns, severe pain, difficulty breathing, unable to keep down food or drink, or any other symptoms of concern. <SILVIA Fisher Last Filed: 08/05/25 19:15> Patient Language: Frisian <SILVIA Fisher Last Filed: 08/05/25 19:15> Prescriptions: No Action ibuprofen 800 mg tablet 800 mg PO TID PRN (Reason: pain) 7 Days Qty: 21 0RF acetaminophen 500 mg tablet 1,000 mg PO TID PRN (Reason: drea) 7 Days Qty: 42 0RF <SILVIA Fisher Last Filed: 08/05/25 19:15> Follow-up/Referrals: Mora,MD Kathryn [Primary Care Provider, Unknown] <Ketty Shay PA-C - Last Filed: 08/05/25 19:15> Time of Disposition: 17:34 <SILVIA Fisher Last Filed: 08/05/25 19:15> 17:34 <SILVIA Peterson Last Filed: 08/05/25 17:39> Quality HEART score for chest pain patients History: slightly suspicious <SILVIA Peterson Last Filed: 08/05/25 17:39> ECG: non specific repolarization disturbance/LBTB/PM <CRISTELA Peterson Last Filed: 08/05/25 17:39> Age: < or = to 45 years <SILVIA Peterson Last Filed: 08/05/25 17:39> Risk factors: no risk factors known <Jannette Cunningham PA-C - Last Filed: 08/05/25 17:39> Troponin: < or = to 1x normal limit <Jannette Cunningham PA-C - Last Filed: 08/05/25 17:39> Heart score: 1 <Ketty Shay PA-C - Last Filed: 08/05/25 19:15> 1 <SILVIA Peterson Last Filed: 08/05/25 17:39>
--- NOTE | 2025-08-05 13:56 | ECG_ITS ---
Test Date: 2025-08-05 14:25:54 Measurements Intervals [place] Rate: 62 P: 46 DC: 144 QRS: 19 QRSD: 95 T: -8 QT: 408 QTc: 417 Interpretive Statements SINUS RHYTHM MODERATE T-WAVE ABNORMALITY, CONSIDER ANTERIOR ISCHEMIA ABNORMAL ECG Compared to ECG 08/05/2025 10:34:22 No significant changes Electronically Signed On 08-05-2025 14:39:32 CDT by Mazin Zaldivar D.O.
[2025-08-05 14:15] VITALS: BP 113/67; PULSE 63; RESP 18; O2SAT 100
[2025-08-05] MEDS: KETOROLAC 15 MG/ML VIAL (*BKC) IV PUSH (14:16)
[2025-08-05 14:35] LABS: NT Pro B Type Natriuretic Pept < 20 pg/mL (19.9-100); Troponin I < 0.012 ng/mL (0.000-0.034)
--- OUTSIDE RECORDS SUMMARY | 2025-08-05 18:02 | XMS_ITS | Encounter Summary ---
Author Organization [facility] Address [address] [place] [address] Care Team Providers Care Mirror Department Supervisor Name Role Phone Unavailable Primary Care Provider Unavailabl e Encounter Details Date Type Department Care Team (Late Contact Info) Description 05/31/2025 Lab Requisition [facility] [address] [place] [address] [place] [address] [place] [address] Social History Tobacco Use Types Packs/Day Years Used Date Smoking Tobacco: Never Alcohol Use Standard Drinks/Week Comments Never 0 (1 standard drink = 0.6 oz pur e alcohol) Feeling Safe Answer Date Recorded Are you in a relationship wi th someone who hurts you emotionally and/or physically? No 04/12/2025 Comments Yes Sex and Gender Information Value Date Recorded Sex Assigned at Not on file Legal Sex Female 5:37 PM [employer] Gender Identity Not on file Sexual Orientation Not on file documented as of this encounter Plan of Treatment Upcoming Encounters Date Type Department Care Team ([facility] Contact Info) Description 08/17/2025 10:00 AM CDT Office Visit [facility] [address] [facility] [address] [place] [address] Sahara Can MD [address] [place] [address] documented as of this encounter Procedures Procedure Name Priority Date/Time Associated Diagnosis Comments EXPOSURE PANEL COMPLETION Routine 05/31/2025 9:55 PM CDT EXPOSED NEEDLESTICK PANEL Routine 05/31/2025 9:55 PM CDT HIV DETECTION W/REFLX CONFIRMATION Routine 05/31/2025 9:55 PM CDT HEPATITIS C ANTIBODY Routine 05/31/2025 9:55 PM CDT documented in this encounter Results * EXPOSURE PANEL COMPLETION (05/31/2025 9:55 PM CDT) [facility] EXPOSURE PANEL RECEIVED Yes 06/01/2025 12:01 AM CDT [facility] Blood 05/31/2025 9:55 PM CDT 05/31/2025 10:13 PM CDT Johanna Forbes DO CHEMISTRY ORDERABLES Final Result [facility] CLIA# [id number] [place] [address] * HEPATITIS C ANTIBODY W REFLEX (05/31/2025 9:55 PM CDT) [facility] HEPATITIS C AB NON-REACT DEVAN Non-react devan 05/31/2025 11:06 PM CDT [facility] Comment:Antibodies to HCV we re not detected, does not exclude the possibility of exposure to HCV. Blood 05/31/2025 9:55 PM CDT 05/31/2025 10:13 PM CDT Johanna Forbes DO CHEMISTRY ORDERABLES Final Result [facility] CLIA# [id number] [address] [place] [address] * HIV DETECTION W/REFLX CONFIRMATION (05/31/2025 9:55 PM CDT) [facility] HIV-1 AND 2 ABS AND HIV-1 AG Non-reacti ve Non-reacti ve 06/01/2025 2:04 AM CDT [facility] Blood 05/31/2025 9:55 PM CDT 05/31/2025 10:13 PM CDT us Johanna Forbes DO CHEMISTRY ORDERABLES Final Result [facility] CLIA# [id number] [address] [place] [address] documented in this encounter Visit Diagnoses Not on filedocumented in this encounter
--- OUTSIDE RECORDS SUMMARY | 2025-08-05 18:02 | XMS_ITS | Clinical Summary ---
Author Organization [facility] Address [address] [place] [address] Phone Care Team Providers Care Assistant Property Manager Name Role Phone Unavailable Primary Care Provider Unavailabl e Allergies No known active allergies Medications metroNIDAZOLE (METROGEL) 0.75 % (37.5mg/5 gram) vaginal gel Insert 1 Applicator vaginally daily at bedtime. 70 Gram 06/29/2025 4:14 PM CDT Active Active Problems No known active problems Encounters Date Type Department Care Team Description 07/27/2025 External Device Data STL ABSTRACTION Provider, Abstract 07/13/2025 External Device Data STL ABSTRACTION Provider, Abstract 07/13/2025 External Device Data STL ABSTRACTION Provider, Abstract 07/07/2025 External Device Data STL ABSTRACTION Provider, Abstract 07/06/2025 External Device Data STL ABSTRACTION Provider, Abstract 07/06/2025 External Device Data STL ABSTRACTION Provider, Abstract 06/30/2025 Results Follow-Up [address] [address] Anna Marie Watson NP POC RAPID STREP A ANTIGEN, POC URINALYSIS DIPSTICK AUTOMATED, POC , URINE, Additional followed-up results: 2 06/29/2025 2:55 PM CDT Office Visit [address] [address] Adams, Evonne, ACCURACY EXPERT Upper respiratory tract infection, unspecified type (Primary Dx); Sore throat; Vaginal discharge 05/31/2025 Lab Requisition [facility] [address] [place] [address] Johanna Forbes DO from Last 3 Months Social History Tobacco Use Types Packs/Day Years Used Date Smoking Tobacco: Never Tobacco Cessation:Counseling Given: Not Answered Alcohol Use Standard Drinks/Week Comments Never 0 (1 standard drink = 0.6 oz pur e alcohol) Feeling Safe Answer Date Recorded Are you in a relationship wi th someone who hurts you emotionally and/or physically? 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 Gender Identity Not on file Sexual Orientation Not on file Last Filed Vital Signs Vital Sign Reading Time Taken Comments Blood Pressure 132/79 06/29/2025 3:06 PM CDT Pulse 73 06/29/2025 3:06 PM CDT Temperature 37.2 C (99 F) 06/29/2025 3:06 PM CDT Respiratory Rate 16 06/29/2025 3:06 PM CDT Oxygen Saturation 99% 06/29/2025 3:06 PM CDT Inhaled Oxygen Concentration - - Weight 94.3 kg (208 lb) 06/29/2025 3:06 PM CDT Height 165.1 cm (5' 5) 06/29/2025 3:06 PM CDT Body Mass Index 34.61 06/29/2025 3:06 PM CDT Plan of Treatment Upcoming Encounters Date Type Department Care Team (Late st Contact Info) Description 08/17/2025 10:00 AM CDT Office Visit [facility] [address] [facility] [address] [place] [address] Sahara Can MD [address] [facility] [address] [place] [address] Health Maintenance Due Date Last Done Comments DTAP/TDAP/TD VACCINES (1 - Tdap) 2013 HEPATITIS B VACCINES (1 of 3 - 19+ 3-dose series) 09/21 HPV/Cotest (21-29) 2015 HPV VACCINES (1 - 3-dose SCDM series) 2021 CERVICAL CANCER SCREENING 2024 HPV/Cotest (30-65) 2024 PAP SMEAR 2024 INFLUENZA VACCINE (#1) 2025 11/06/2024 COVID-19 Vaccine (2 season) 2025 Procedures Procedure Name Priority Date/Time Associated Diagnosis Comments VAGINOSIS/VAGINITIS PANEL PLUS Routine 06/29/2025 3:37 PM CDT Vaginal discharge URINE CULTURE Routine 06/29/2025 3:35 PM CDT Vaginal discharge POC URINALYSIS DIPSTICK AUTOMATED Routine 06/29/2025 3:21 PM CDT Vaginal discharge POC RAPID STREP A ANTIGEN Routine 06/29/2025 3:20 PM CDT Sore throat POC , URINE Routine 06/29/2025 3:19 PM CDT Vaginal discharge EXPOSURE PANEL COMPLETION Routine 05/31/2025 9:55 PM CDT HEPATITIS C ANTIBODY Routine 05/31/2025 9:55 PM CDT HIV DETECTION W/REFLX CONFIRMATION Routine 05/31/2025 9:55 PM CDT EXPOSED NEEDLESTICK PANEL Routine 05/31/2025 9:55 PM CDT from Last 3 Months Results * (ABNORMAL) VAGINOSIS/VAGINITIS PANEL PLUS (06/29/2025 3:37 PM CDT) BACTERIAL VAGINOSIS POSITIVE(A) NEGATIVE [facility] [place] SARAH SPECIES DETECTED(A) NOT DETECTED [facility] [place] SARAH GLABRATA NOT DETECTED NOT DETECTED [facility] [place] Comment: Sarah species C. albicans, C. tropicalis, C. parapsilosis, and/or C. dubliniensis can be detected, but not differentiated, in the Sarah spp. result. TRICHOMONAS VAGINALIS (TV), TMA NOT DETECTED NOT DETECTED [facility] [place] CHLAMYDIA TRACHOMATIS RNA, TMA, UROGENITAL NOT DETECTED NOT DETECTED [facility] [place] NEISSERIA GONORRHOEAE RNA, TMA, UROGENITAL NOT DETECTED NOT DETECTED [facility] [place] Comment: For additional information, please refer to https://education.Supremex/faq/KYE425 (This link is being provided for information/ educational purposes only.) Test Performed at: [facility] [id number] [place] [address] Gia Bowser MD Genital SPECIMEN FROM VAGINA / Unknown 06/29/2025 3:37 PM CDT 06/30/2025 3:22 AM CDT [facility] MICROBIOLOGY - GENERAL ORDERABLE S Final Result Performing Organization Address City/[facility]/ZIP Co de Phone Number [facility] [phone] [facility] [address] [place] [address] * URINE CULTURE (06/29/2025 3:35 PM CDT) URINE CULTURE SEE NOTE [id number] Comment: CULTURE, URINE, ROUTINE Micro Number: [id number] Test Status: Final Specimen Source: Urine, clean catch Specimen Quality: Adequate Result: Less than 10,000 CFU/mL of single Gram positive organism isolated. No further testing will be performed. If clinically indicated, recollection using a method to minimize contamination, with prompt transfer to Urine Culture Transport Tube, is recommended. COMMENT: No group B Streptococcus isolated Test Performed at: [facility] [address] [place] [address] Gia Bowser MD Urine URINE SPECIMEN OBTAINED BY CLEAN CATCH PROCEDURE / Unknown 06/29/2025 3:35 PM CDT 06/30/2025 3:22 AM CDT [facility] MICROBIOLOGY - GENERAL ORDERABLE S Final Result Performing Organization Address City/[facility]/ZIP Co de Phone Number [facility] [phone] [facility] [address] [place] [address] * (ABNORMAL) POC URINALYSIS DIPSTICK AUTOMATED (06/29/2025 3:21 PM CDT) COLOR UA POC Yellow Pale to Dark Yellow [facility] CLARITY UA POC Cloudy(A) Clear, Other [facility] GLUCOSE UA POC Negative Negative, Normal [facility] BILIRUBIN UA POC 1+(A) Negative [facility] KETONES UA POC Trace(A) Negative [facility] SPECIFIC GRAVITY UA POC >=1.030 1.000 - 1.030 [facility] BLOOD UA POC Negative Negative [facility] PH UA POC 5.5 5.0 - 8.0 [facility] PROTEIN UA POC Trace(A) Negative [facility] UROBILINOGEN UA POC 1.0 <2.0 mg/dL [facility] NITRITE UA POC Negative Negative [facility] LEUKOCYTE ESTERASE UA POC 1+(A) Negative [facility] KIT LOT NUMBER POC [id number] [facility] KIT EXP DATE POC 07/29/2025 [facility] Urine 06/29/2025 3:[address] [facility] ACCURACY EXPERT POINT OF CARE TESTING Final Resu lt [facility] CLIA# [id number] [place] [address] * POC RAPID STREP A ANTIGEN (06/29/2025 3:20 PM CDT) [facility] RAPID STREP POC Negative Negative, Indeterminate [facility] INTERNAL KIT QC POC Pass Pass [facility] KIT LOT NUMBER POC [phone] [facility] KIT EXP DATE POC 03/22/2026 [facility] READ METHOD POC Visual [facility] Upper Respiratory SPECIMEN FROM THROAT / Unknown 06/29/2025 3:20 PM CDT [facility] POINT OF CARE TESTING Final Resu lt [facility] CLIA# [id number] [place] [address] * POC , URINE (06/29/2025 3:19 PM CDT) Pathologist [facility] HCG QUAL URINE POC Negative Negative, Indeterminate [facility] INTERNAL KIT QC POC Pass Pass [facility] KIT LOT NUMBER POC [phone] [facility] KIT EXP DATE POC 10/21/2026 [facility] Urine 06/29/2025 3:19 PM CDT [facility] POINT OF CARE TESTING Final Resu lt [facility] CLIA# [id number] [place] [address] * EXPOSURE PANEL COMPLETION (05/31/2025 9:55 PM CDT) [facility] EXPOSURE PANEL RECEIVED Yes 06/01/2025 12:01 AM CDT [facility] Blood 05/31/2025 9:55 PM CDT 05/31/2025 10:13 PM CDT Johanna Forbes DO CHEMISTRY ORDERABLES Final Result [facility] CLIA# [id number] [address] [place] [address] * HIV DETECTION W/REFLX CONFIRMATION (05/31/2025 9:55 PM CDT) [facility] HIV-1 AND 2 ABS AND HIV-1 AG Non-reacti ve Non-reacti ve 06/01/2025 2:04 AM CDT [facility] Blood 05/31/2025 9:55 PM CDT 05/31/2025 10:13 PM CDT [facility] Le[facility] DO CHEMISTRY ORDERABLES Final Result [facility] CLIA# [id number] [address] [place] [address] * HEPATITIS C ANTIBODY W REFLEX (05/31/2025 9:55 PM CDT) HEPATITIS C AB NON-REACT PATRICIA Non-react patricia 05/31/2025 11:06 PM CDT [facility] Comment:Antibodies to HCV we re not detected, does not exclude the possibility of exposure to HCV. Blood 05/31/2025 9:55 PM CDT 05/31/2025 10:13 PM CDT Johanna Forbes DO CHEMISTRY ORDERABLES Final Result Performing Organization Address City/[facility] Co de Phone Number [facility] [employer] [facility] CLIA# [id number] [place] [address] from Last 3 Months Insurance [facility] [employer] MEDICAID [employer] Member Subscriber Plan / Payer (Ef fective 2025-Present) Name:Rosy Pierson Relation to Subscriber:Self Name:Rosy Pierson Subscriber ID:Not on file Payer ID:Not on file Type:Not on file Address: [address]
--- OUTSIDE RECORDS SUMMARY | 2025-08-05 18:02 | XMS_ITS | Encounter Summary ---
Author Organization [facility] Address [address] [place] [address] Care Team Providers Care Protection Chief Industrial Plant Name Role Phone Unavailable Primary Care Provider Unavailabl e Encounter Details Date Type Department Care Team (Late st Contact Info) Description 06/30/2025 Results Follow-Up [facility] [address] [address] Anna Marie Watson NP [address] [facility] [address] [address] POC RAPID STREP A ANTIGEN, POC URINALYSIS DIPSTICK AUTOMATED, POC , URINE, Additional followed-up results: 2 Social History Tobacco Use Types Packs/Day Years [...] on file 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
--- OUTSIDE RECORDS SUMMARY | 2025-08-05 18:02 | XMS_ITS | Clinical Summary ---
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 Gender Identity Not on file Sexual Orientation Not on file Plan of Treatment Health Maintenance Due Date Last Done Comments Hepatitis C Virus (HCV) Screening 1994 TdaP Immunization 1994 Hepatitis B Immunization (1 of 3 - 19+ 3-dose series) 2013 Pap Smear 2015 Human Papillomavirus (HPV) Immunization (1 - 3-dose SCDM series) 2021 Cervical Cancer Screening (CCS) 2024 HPV/Cotest 2024 Influenza Immunization (#1) 2025 SARS-COV-2 Immunization ( season) 2025 Respiratory Syncytial Virus (RSV) Immunization (Adult) (1 - 1-dose 75+ series) 2069 Meningococcal Immunization (ACWY) Aged Out No longer eligible based on patient's age to complete this topic Pneumococcal Immunization Combined Aged Out No longer eligible based on patient's age to complete this topic Rotavirus Immunization Aged Out No lo nger eligible based on patient's age to complete this topic
--- OUTSIDE RECORDS SUMMARY | 2025-08-05 18:03 | XMS_ITS | Clinical Summary ---
Author Organization [facility] Address [facility] [place] [address] Care Team Providers Care Binder Sorter Name Role Phone Mallory Can [facility] Primary Care Provider [phone] Allergies No known active allergies Medications famotidine 20 MG tablet Take 1 tablet (20 mg total) by mouth 2 (two) times daily. 60 tablet 1 Active ondansetron (ZOFRAN-ODT) 4 MG disintegrating tablet Take 1 tablet (4 mg total) by mouth every 8 (eight) hours as needed for Nausea. 20 tablet 2 Active dicyclomine (BENTYL) 20 MG tablet Take 1 tablet (20 mg total) by mouth every 6 (six) hours. 120 tablet 2 Active naproxen (NAPROSYN) 500 MG tablet Take 1 tablet (500 mg total) by mouth 2 (two) times daily with meals. 20 tablet 4 Active naproxen (NAPROSYN) 500 MG tablet Take 1 tablet (500 mg total) by mouth 2 (two) times daily with meals. 20 tablet 5 Active tiZANidine (ZANAFLEX) 4 MG tablet Take 1 tablet (4 mg total) by mouth every 8 (eight) hours as needed. 12 tablet 5 Active lidocaine 4 % patch Place 1 patch onto the skin daily. Remove & Discard patch within 12 hours or as directed by 30 patch 5 Active Active Problems No known active problems Family History Medical History Relation Comments Hypertension Father Relation Status Comments Father Social History Tobacco Use Types Packs/Day Years Used Date Smoking Tobacco: Never Smokeless Tobacco: Never Alcohol Use Standard Drinks/Week Comments No 0 (1 standard drink = 0.6 oz pur e alcohol) Comments No Sex and Gender Information Value Date Recorded Sex Assigned at Female 03/24/2025 11:22 AM CDT Legal Sex Female 10:27 AM CDT Gender Identity Female 03/24/2025 11:22 AM CDT Sexual Orientation Not on file Last Filed Vital Signs Vital Sign Reading Time Taken Comments Blood Pressure 124/75 03/24/2025 1:25 PM CDT Pulse 82 03/24/2025 1:25 PM CDT Temperature 36.4 C (97.6 F) 03/24/2025 11:23 AM CDT Respiratory Rate 16 03/24/2025 1:25 PM CDT Oxygen Saturation 100% 03/24/2025 1:25 PM CDT Inhaled Oxygen Concentration - - Weight 90.7 kg (200 lb) 03/24/2025 11:23 AM CDT Height 165.1 cm (5' 5) 03/24/2025 11:23 AM CDT Body Mass Index 33.28 03/24/2025 11:23 AM CDT Plan of Treatment Health Maintenance Due Date Last Done Comments Annual Physical 1997 DTaP, Tdap and Td Vaccines ( 1 - Tdap) 2013 Hepatitis B Vaccines (1 of 3 - 19+ 3-dose series) 2013 HPV Vaccines (1 - 3-dose SCD M series) 2021 Cervical Cancer Screening Pa p with HPV Testing (Age 30 to 64) Every 5 Years 2024 12/06/2023 COVID-19 Vaccine (2 - 2024-2 6 season) 2025 05/13/2023 Influenza Adult (#1) 2025 11/06/2024 Cervical Cancer Screening Pa p Smear (Age 30 to 64) Every 3 Years 12/06/2026 12/06/2023 Cervical Cancer Screening with HPV 12/06/2026 Hepatitis C Completed 12/06/2023 Meningococcal B Vaccine Aged Out No l onger eligible based on patient's age to complete this topic Meningococcal Vaccine Aged Out No mckenzie fabiano eligible based on patient's age to complete this topic Pneumococcal Vaccine: Pediat rics (0 to 5 Years) and At-Risk Patients (6 to 49 Years) Aged Out No longer eligi ble based on patient's age to complete this topic RSV Immunizations Under 20 Months Aged Out No longer eligible based on patient's age to complete this topic Insurance [employer] Care Teams Binder Sorter Relationship Specialty Start Date End Date Mallory Can, TAMARA [address] [place] [address] PCP - General NURSE PRACTITIONER 07/29/24
--- OUTSIDE RECORDS SUMMARY | 2025-08-05 18:03 | XMS_ITS | Clinical Summary ---
Author Organization [address] Address [facility] [place] [address] Care Team Providers Care Lacquer Coater Name Role Phone Kathryn Velazco MD Primary Care Provi sharan Allergies No known active allergies Medications docusate sodium (COLACE) 100 mg capsuleIndicati ons:constipatio n Take 1 capsule (100 mg total) by mouth 2 (two) times a day for 7 days 14 capsule 2 Active Additional Information Patient not taking.Reported on 12/21/2022 naproxen (NAPROSYN) 500 mg tablet Take 1 tablet (500 mg total) by mouth 2 (two) times a day with meals 30 tablet 3 Active Additional Information Patient not taking.Reported on 12/21/2022 ferrous sulfate ER 159 mg (45 mg of elemental iron) tablet extended releaseIndicati ons:Iron Deficiency Anemia Take 1 tablet (159 mg total) by mouth daily Take on empty stomach 30 minutes before eating. 30 tablet 3 3 Active fluconazole (DIFLUCAN) 150 mg tablet Take 1 tablet (150 mg total) by mouth as directed 1 tablet 3 Active norethindrone-e thinyl estradiol-iron (MICROGESTIN FE 1.5/30) 1.5 mg-30 mcg per tablet Take 1 tablet by mouth daily 28 tablet 5 Active acetaminophen (TYLENOL) 500 mg tablet Take 1 tablet (500 mg total) by mouth every 6 (six) hours as needed for pain 30 tablet 5 Active Active Problems Problem Noted Date Diagnosed Date Vaginal irritation 12/21/2022 Pericarditis 08/08/2022 Well adult exam 01/24/2022 Overview (01/24/2022): Encouraged a healthy diet, and regular physical activity to her level Wear sun screen, seat belts No texting/drinking and driving Health Maintenance: Last PAP: she follows with her [facility] in March Last Tdap: 2 years ago Last Flu: encouraged Last COVID: encouraged Assessment & Plan (01/24/2022 12:49 PM CDT): Encouraged a healthy diet, and regular physical activity to her level Wear sun screen, seat belts No texting/drinking and driving Health Maintenance: Last PAP: she follows with her [facility] in March Last Tdap: 2 years ago Last Flu: encouraged Last COVID: encouraged Iron deficiency anemia due to chronic blood loss 05/05/2021 Assessment & Plan (01/24/2022 12:56 PM CDT): Labs ordered Reviewed how low iron can make her feel Update me with any changes Assessment & Plan (06/13/2021 1:24 PM CDT): Continue iron- improved! Recheck in 3-6 months Call for questions or concerns Assessment & Plan (05/05/2021 9:19 AM CDT): Will start ferrous sulfate 1 tab daily If bowels start to slow- please let me know Set up follow up with [facility] Recheck labs in 2-3 months Call for questions or concerns Class 1 obesity due to exces s calories without serious comorbidity with body mass index (BMI) of 30.0 to 30.9 in adult 05/05/2021 Assessment & Plan (01/24/2022 12:54 PM CDT): BMI Follow-up includes: nutrition counseling. Assessment & Plan (05/05/2021 9:23 AM CDT): BMI Follow-up includes: nutrition counseling. [place]ie pericarditis 02/15/2021 History of pneumonia 01/10/2021 Assessment & Plan (01/24/2022 12:55 PM CDT): F/u chest xray Large breasts 12/15/2020 Assessment & Plan (01/24/2022 12:56 PM CDT): Set up an appointment with her plastic surgery Assessment & Plan (12/15/2020 2:51 PM [employer]): Will refer to plastic surgery Update me after the referral Call for questions or concerns Pericardial effusion 07/12/2020 Assessment & Plan (01/24/2022 12:57 PM CDT): Keep follow up with Dr Kendall Stafford me with any changes Call for questions Assessment & Plan (06/13/2021 1:24 PM CDT): Continue indomethacin from cardiology Update me with any changes Call for questions or concerns Assessment & Plan (05/05/2021 9:18 AM CDT): Continue to follow with cardiology Continue indocin Update me after the visit Call for questions or concerns Urinary tract infectious disease 06/14/2020 Acute idiopathic pericarditis 05/16/2020 Assessment & Plan (01/24/2022 12:54 PM CDT): Keep follow up with Dr Kendall Stafford me with any changes Call for questions Assessment & Plan (06/14/2020 11:15 AM CDT): Asymptomatic currently Continue to follow with cardiology With her high sed rate/inflammatory markers, keep appointment with rheum Update me after the visit Call for questions or concerns Assessment & Plan (05/16/2020 1:08 PM CDT): She is off cochicine We are attempting to get it approved Will reach out to cardiology for possible other treatment options With high RA Factor, sed rate, and CRP- will refer to rheum Keep appointment with cardiology Update me after the visit Scoliosis 05/05/2020 Assessment & Plan (06/14/2020 11:14 AM CDT): Encouraged to set up an appointment with pain management Check with her insurance for ortho spine in her network Continue supportive care Call for questions or concerns Assessment & Plan (05/16/2020 1:06 PM CDT): Will refer to ortho/pain management Assessment & Plan (05/05/2020 5:13 PM CDT): Will need xrays- but referring to ER emergently Will discuss possible referral to ortho spine/pain management for guidance Update me after her discharge Dysfunctional uterine bleeding 05/05/2020 Assessment & Plan (01/24/2022 12:54 PM CDT): Improved Continue to follow with [facility] Assessment & Plan (05/05/2021 9:16 AM CDT): Encouraged to set up a follow up visit with [facility] Update me after the visit Call for questions Assessment & Plan (05/05/2020 5:14 PM CDT): On implanon and OCP's Will need follow up with [facility] Update me after the visit Call for questions or concerns Chest wall pain 10/12/2019 Flank pain 08/26/2019 Dyspepsia 06/16/2019 Assessment & Plan (01/24/2022 12:55 PM CDT): Resolved Continue to monitor her symptoms Assessment & Plan (06/13/2021 1:23 PM CDT): Restart pepcid Update me if her symptoms change or worsen Call for questions or concerns Bladder infection 06/16/2019 Resolved Problems Problem Noted Date Diagnosed Date Resolved Date Elevated liver enzymes 12/21/202212/21 Elevated LFTs 05/16/2020 05/05/2021 Assessment & Plan (05/16/2020 1:08 PM CDT): Will check hepatitis panel Consider GI referral Call for questions or concerns Third trimester 08/26/2019 Second trimester 06/16/2019 0 12/15/2020 Encounter for removal of sub dermal contraceptive implant 03/07/2018 06/13/2021 Immunizations Immunization Administration Dates Next Due Influenza, Trivalent, Preser vative Free, Intramuscular 11/06/2024 Influenza, Unspecified 07/21/2022(Deferr ed: Patient Refused),07/21/2021(Deferred: Patient Refused),07/21/2020(Deferred: Patient Refused),07/21/2020(Deferred: Patient Refused),07/21/2020(Deferred: Patient Refused) Surgical History Surgery Date Site/Laterality Comments INDUCED 08/23/2020 US ABDOMEN COMPLETE W LIVER DOPPLER (C) 07/04/2018 Right DILATION AND CURETTAGE OF UTERUS 10/21/2017 - 10/20/2018 Medical History Medical History Date Comments Collar bone fracture Scoliosis Second trimester 06/16/2019 Third trimester 08/26/2019 Acute idiopathic pericarditis 05/16/2020 Family History Medical History Relation Name Comments No Known Problems Brother Hypertension Father No Known Problems Mother No Known Problems Sister Anesthesia problems Neg Hx Relation Name Status Comments Brother Alive Father Alive Mother Alive Sister Alive Social History Tobacco Use Types Packs/Day Years Used Date Smoking Tobacco: Never Smokeless Tobacco: Never Tobacco Cessation:Counseling Given: Not Answered Alcohol Use Standard Drinks/Week Comments Not Currently 0 (1 standard drink = 0.6 oz pur e alcohol) AUDIT-C Answer Date Recorded Q1: How often do you have a drink containing alc ohol? Never 09/04/2022 Average Number of Drinks Not on file 022 Q3: How often do you have si x or more drinks on one occasion? Never 09/04/2022 PHQ-2 Answer Date Recorded PHQ-2 Total Score (If total score is 3 or more points, staff should administer the PHQ-9) 0 07/20/2022 Personal Safety Answer Date Recorded Have you ever been in or are you currently in a harmful physical or emotional relationship or is someone making you feel afraid or unsafe? Denies 01/23/2025 Comments No Sex and Gender Information Value Date Recorded Sex Assigned at Not on file Legal Sex Female 7:19 AM CDT Gender Identity Not on file Sexual Orientation Not on file Occupation Industry Job Start Date Job End Date [employer] Not on file Not on file Not on file Obstetrics History Para Term AB IAB SAB Ectopic Multiple Livin g Live Births 1 Date Outcome GA Total Labor Labor/2nd/3rd Weight Sex Type Anes PTL Jackie A1 A5 Name Clin Last Filed Vital Signs Vital Sign Reading Time Taken Comments Blood Pressure 112/100 01/23/2025 1:10 PM CDT Pulse 52 01/23/2025 1:10 PM CDT Temperature 36.7 C (98 F) 01/21/2025 3:17 PM CDT Respiratory Rate 16 01/23/2025 1:10 PM CDT Oxygen Saturation 100% 01/23/2025 1:10 PM CDT Inhaled Oxygen Concentration - - Weight 92.5 kg (204 lb) 01/23/2025 11:34 AM CDT Height 165.1 cm (5' 5) 01/21/2025 3:21 PM CDT Body Mass Index 33.95 01/21/2025 3:21 PM CDT Plan of Treatment Health Maintenance Due Date Last Done Comments DTaP/Tdap/Td Vaccine (1 - Tdap) 2005 Hepatitis B Screening 2012 Cervical Cancer Screening 04/09/2020 04/09/2019 HPV Vaccines (1 - 3-dose SCDM series) 2021 Regular Well Visit/Exam 18-64 01/24/2023 01/24/2022, 01/24/2022 Depression Screening 07/20/2023 07/20/2022, 02/16/2022, 01/24/2022, Additional history exists Covid-19 Vaccine (2024- season) 2025 05/13/2023 Influenza Vaccine (#1) 2025 11/06/2024 Hepatitis C Screening Completed 05/16/2020 Pneumococcal vaccine <65 Aged Out No longer eligible based on patient's age to complete this topic Varicella Vaccines Discontinued Procedures Procedure Name Priority Date/Time Associated Diagnosis Comments HEPATITIS PANEL, ACUTE Routine 05/16/2020 2:06 PM CDT Elevated LFTs HM PAP SMEAR WITH HPV Routine 04/09/2019 from Last 3 Months or Most Recently Relevant to Health Maintenance Results * Hepatitis panel, acute (05/16/2020 2:06 PM CDT) HepBsAg NONREACT NONREACTIVE [facility] Comment: Siemens CentaurXP using JOSELUIS (chemiluminescent immunoassay) technology. NONREACTIVE: IgM antibodies to Hepatitis B Surface antigen not detected. REACTIVE: IgM antibodies to Hepatitis B Surface antigen detected. Reactive results will be confirmed by neutralization testing. HBsAb qn 4.42 mIU/mL [facility] Comment: Siemens CentaurXP using JOSELUIS (chemiluminescent immunoassay) technology. 9.99 IU/L or less.....NONREACTIVE: IgM antibodies to Hepatitis B Surface antibody are not detected. 10.00 IU/L or greater..REACTIVE: IgM antibodies to Hepatitis B Surface antibody are detected. Hep B core IgM NONREACT NONREACTIVE [facility] Comment: Siemens CentaurXP using JOSELUIS (chemiluminescent immunoassay) technology. NONREACTIVE: IgM antibodies to Hepatitis B Core antigen not detected. EQUIVOCAL: IgM antibodies to Hepatitis B Core antigen may or may not be present. Obtain a new specimen and retest. REACTIVE: IgM antibodies to Hepatitis B Core antigen detected. Hep A IgM NONREACT NONREACTIVE [facility] Comment: Siemens CentaurXP using JOSELUIS (chemiluminescent immunoassay) technology. NONREACTIVE: IgM antibodies to Hepatitis A not detected. This does not exclude possibility of exposure to Hepatitis A or early acute infection. EQUIVOCAL:IgM antibodies to Hepatitis A may or may not be present. Suggest recollection and retest. REACTIVE: Antibodies to Hepatitis A detected. Hep C Ab NONREACT NONREACTIVE [facility] Comment: Siemens CentaurXP using JOSELUIS (chemiluminescent immunoassay) technology. NONREACTIVE: Antibodies to Hepatitis C not detected. This does not exclude early acute Hepatitis C infection, possibility of exposure to Hepatitis C, antibodies below detection limit, or to lack of antibody reactivity to the antigen used in this assay. EQUIVOCAL: Antibodies to Hepatitis C may or may not be present. Sample to be confirmed by real-time PCR method. REACTIVE: Antibodies to Hepatitis C detected.Sample to be confirmed by real-time PCR method. Blood specimen (specimen) 05/16/2020 2:06 PM CDT 05/16/2020 2:19 PM CDT Narrative Resulting Agency Comment CLI us Kathryn Velazco MD LAB MICROBIOLOGY - GENERAL ORDERABLES Final Result [facility] [id number] [place], [place] [id number] [place] [address] * HM PAP SMEAR WITH HPV (04/09/2019) us Historical Provider HEALTH MAINTENANCE Final Result from Last 3 Months or Most Recently Relevant to Health Maintenance Insurance [id number] [place] [address] [facility] Care Teams Lacquer Coater Relationship Specialty Start Date End Date Kathryn Velazco MD [address] [place], [place] [id number] PCP - General Family Medicine 04/29/20
--- OUTSIDE RECORDS SUMMARY | 2025-08-05 18:03 | XMS_ITS | Data Portability ---
Author Organization [facility] , [facility] Address [address] [place] [address] Care Team Providers Care Electronic Test Technician Name Role Phone [facility] [employer] Instructor Assessment No assessment recorded. Plan of Treatment Reminders Order Date Submit Date Provider Last Modified By Organization Details Last Modified Time Details Appointments None recorded. Lab test, urine 2023 024 [email or web address] 0 [facility], [address] [place], [address], 4 16:27:55 beta-HCG, quantitativ e, serum or plasma 2023 024 [facility], [address] [place], [address], 4 06:41:27 bacterial vaginosis + vaginitis panel, vaginal 2023 024 [facility], [address] [place], [address], 4 14:13:39 bacterial vaginosis + vaginitis panel, vaginal 2022 023 [facility], [address] [place], [address], 3 10:40:25 culture, urine 2022 023 [facility], [address] [place], [address], 3 21:47:22 urinalysis, dipstick 2022 023 [email or web address] 1 [facility], [address] [place], [address], 3 12:48:44 unlisted lab - Pap reflex hold 2021 022 PHILLIP [facility], [address] [place], [address], 2 09:27:57 pap, LB 2021 022 [facility], [address] [place], [address], 2 14:32:51 Referral None recorded. Procedures None recorded. Surgeries None recorded. Imaging None recorded. Medication Orders metronidazo le 0.75 % (37.5 mg/5 gram) vaginal gel 2022 023 [email or web address] 1 [id number], [address] , [place], [place], [id number], 4 16:04:15 Patient TargetsNo targets recorded. Patient Instructions Encounter Date Encounter Id Patient Instructions Last Modified By Organization Details Last Modified Time 08/08/2022 [id number] learning about dietary guidelines elizabeth Not available 08/08/2022 12:35:38 eating healthy foods: care instructions [email or web address] Not available 08/08/2022 12:35:38 abuse/domestic violence education [email or web address] Not available 08/08/2022 12:35:38 weight managemen t education [email or web address] Not available 08/08/2022 12:35:38 learning about control [email or web address] Not available 08/08/2022 12:35:39 11/07/2022 [id number] frequent urination: care instructions Not available 11/07/2022 12:48:44 bacterial vaginosis: care instructions Not available 11/07/2022 12:48:44 09/17/2023 [id number] A healthy lifestyle: care instructions Not available 09/17/2023 14:26:06 exercise program : getting started Not available 09/17/2023 14:26:06 04/02/2024 [id number] vaginitis: care instructions [email or web address] Not available 04/02/2024 16:20:08 - Refrain from washcloth/loofah use, ortega delmy products, frequent pantiliner use. - Pt instructed to wear cotton underwear, changing out of workout clothes quickly, hypoallergenic soap. -Discussed vaginal hygiene. -Encouraged safe sex. - Use a detergent free of dyes, enzymes and perfumes. Avoid using fabric softeners. Soak and rinse when using a stain removing product and then wash normally. Do not use a fabric softener. Soak and rinse in clear water all underwear and towels on when you have used a stain removing product. Then wash in your regular washing cycle. -Avoid tight clothing, especially clothing made of synthetic fabrics. Remove wet bathing and exercise clothing as soon as you can. - Avoid bath soaps, lotions, gels, etc. which contain perfumes. This includes many baby products and feminine hygiene products marked mild or for vaginal health. We suggest any of the following soaps: Dove-Hypoallergeni c, Neutrogena, Basis, or Pearls. Do not use soap directly on the vulvar skin just warm water and your hand will keep the vulvar area clean without irritating the skin. - Avoid all bubble baths, bath salts and scented oils. -Do not use hot water while bathing or showering. Only luke-warm water should only be used. -Avoid all feminine hygiene sprays, perfumes, adult, or baby wipes. Pour lukewarm water over the vulva after urinating if urine causes burning of the skin. Pat dry rather than rubbing with a towel. - Avoid the use of deodorized pads and tampons. Tampons should be used when the blood flow is heavy enough to soak one tampon in four hours or less. Tampons are safe for most women, but wearing them too long or when the blood flow is light may result in vaginal infection, increased discharge, odor, or toxic shock syndrome. Also, use only pads that have a cotton liner that comes in contact with your skin (no dry weave pads). - Avoid all over the counter creams or ointments, except A&D Ointment (if you have wool allergy do not use A&D). -DO NOT DOUCHE. Baking soda soaks will help rinse away extra discharge and help with odor. -DO NOT SHAVE, wax or laser the vulvar area (the bikini line is ok). -Some women may have problems with chronic dampness. Keeping dry is important. Choose cotton fabrics whenever you can. -Keep an extra pair of underwear with you in a small bag and change if you become damp during the day at work/school. -Gold Song Powder or Zeosorb Powder may be applied to the vulva and groin area one to two times per day to help absorb moisture. -Dryness and irritation during intercourse may be helped by using a lubricant. Use a small amount of a pure vegetable oil/olive oil or Crisco (solid or oil). The vegetable oils contain no chemicals to irritate vulvar/vaginal skin. Vegetable oils will rinse away with water and will not increase your chances of infection. Water-based products like K-Y Jelly are helpful, but may tend to dry before intercourse is over and also contain chemicals that can irritate your vulvar skin. It may be helpful to use a non-lubricated, non-spermicidal condom, and use vegetable oil as the lubricant. This will help keep the semen off the skin which can decrease burning and irritation after intercourse. CONTROL OPTIONS 1. All hormonal contraceptives will have an effect on vaginal secretions but should not increase your frequency of vaginitis. 2. Lubricated condoms, contraceptive jellies, creams, or sponges may cause itching and burning. Ask your health care provider for help. 3. The use of latex condoms with a vegetable oil as a lubricant (#14 above) is suggested to protect your skin. Oil based lubricants may affect the integrity of condoms when used for control or prevention of sexually transmitted diseases. Our experience has not found this to be a problem with vegetable based oils. However, the Centers for Disease Control recommends that condoms not be used with any oil based lubricants for control or prevention of sexually transmitted disease. Discussed ureaplasma/mycopla sma testing and treatment, if indicated. [email or web address] Not available 04/02/2024 16:06:15 Reason for Referral None Reported. Results Created Date Observation Date Name Description Value Unit Range Abnormal Flag Note LastModifiedBy Organization Detail LastModifiedTime 08/08/2008/09/2022 PAP REFLE X HOLD Pap reflex hold Receiv ed receiv ed Not Available [facility] [address] [place], [address], 08/09/2022 09:27:57 08/08/2008/12/2022 THINP REP TIS PAP clinical information: normal None given Not Available [address], [address], 08/12/2022 14:32:50 08/08/2008/12/2022 THINP REP TIS PAP LMP: normal NONE GIVEN Not Available [address], [address], 08/12/2022 14:32:50 08/08/2008/12/2022 THINP REP TIS PAP prev. Pap: normal NONE GIVEN Not Available [address], [address], 08/12/2022 14:32:50 08/08/20 22 08/12/2022 THINP REP TIS PAP prev. BX: normal NONE GIVEN Not Available [address], [address], 08/12/2022 14:32:50 08/08/2008/12/2022 THINP REP TIS PAP source: normal Cervi x Not Available [address], [address], 08/12/2022 14:32:50 08/08/2008/12/2022 THINP REP TIS PAP statement of adequacy: normal Satis facto ry for evalu ation . Endoc ervic al/tr ansfo rmati on zone compo nent prese nt. Age and/o r menst rual statu s not provi ded Not Available [address] [address] [place], [address], 08/12/2022 14:32:50 08/08/2008/12/2022 THINP REP TIS PAP interpretati on/result: normal Negat devan for intra epith elial lesio n or malig jessie . Not Available [address] [address] [place], [address], 08/12/2022 14:32:50 08/08/2008/12/2022 THINP REP TIS PAP comment: normal This Pap test has been evalu ated with compu ter er[facility] [employer] . Not Available [address], [place], [address], 08/12/2022 14:32:50 08/08/2008/12/2022 THINP REP TIS PAP cytotechnolo gist: normal MMW, CT( CP) CT scree daya locat ion: [address] [address] [place] [address] Not Available [address] [address] [place], [address], 08/12/2022 14:32:50 08/08/2008/12/2022 THINP REP TIS PAP comment EXPLA NATOR Y NOTE: The Pap is a scree daya test for cervi naren cance r. It is not a diagn ostic test and is subje ct to false negat devan and false posit devan resul ts. It is most relia ble when a satis facto ry sampl e, regul socorro obtai ryan, is submi tted with relev ant clini naren findi ngs and histo ry, and when the Pap resul t is evalu ated along with histo tato and curre nt clini naren infor matio n. Not Available [address] [address] [place], [address], 08/12/2022 14:32:50 11/07/19 23 11/08/2022 CULTU RE, URINE , ROUTI NE culture, urine, routine SEE NOTE abnormal CULTU RE, URINE , ROUTI NE Micro Numbe r: [id number] Test Statu s: Final Speci men Sourc e: Urine Speci men Quali ty: Adequ ate Resul t: 1,000 -9,00 0 CFU/M L of Group B Strep tococ cus isola star Beta- hemol ytic strep tococ ci are predi ctabl y susce ptibl e to Penic illin and other beta- lacta ms. Susce ptibi lity testi ng not routi danielle perfo rmed. Pleas e conta ct the labor atory withi n 3 days if susce ptibi lity testi ng is jere ed. Comme nt: Eryth romyc in and clind amyci n are not recom melani d for treat ment of urina ry tract infec tions , but clind amyci n may be usefu l for treat ment of recto vagin al colon izati on or infec tion. Any amoun t of group B Strep tococ cus in urine speci mens obtai ryan from pregn ant femal es is a marke r of genit al tract colon izati on. If this patie nt is pregn ant, pleas e refer to ACOG guide lines for appro priat e scree daya and manag ement of pregn ant women . COMME NT: Addit ional non-p redom inati ng organ ism(s ) isola star. These organ isms, commo nly found on exter nal and inter nal genit chevy, are consi dered colon izers . No furth er testi ng perfo rmed. Not Available [facility] [address] [address], [place], [address], 11/08/2022 21:47:21 11/07/19 23 11/09/2022 VAGIN ITIS PLUS STD PANEL bacterial vaginosis BV POS negati ve abnormal Not Available [facility] [address] [place], [address], 11/10/2022 10:40:25 11/07/19 23 11/09/2022 VAGIN ITIS PLUS STD PANEL eula species C. spp neg negati ve normal Not Available [address], [address], 11/10/2022 10:40:25 11/07/19 23 11/09/2022 VAGIN ITIS PLUS STD PANEL eula glabrata C. gla neg negati ve normal Not Available [address], [address], 11/10/2022 10:40:25 11/07/19 23 11/09/2022 VAGIN ITIS PLUS STD PANEL trichomonas vaginalis CV/TV TRICH neg negati ve normal Not Available [address], [address], 11/10/2022 10:40:25 11/07/19 23 11/09/2022 VAGIN ITIS PLUS STD PANEL chlamydia trachomatis CT neg negati ve normal This repor t is inten ded for us in clini naren monit oring and manag ement of patie nts. It is not inten ded for use in medic al-le gal appli catio n. Not Available [address], [address], 11/10/2022 10:40:25 11/07/19 23 11/09/2022 VAGIN ITIS PLUS STD PANEL neisseria gonorrhoeae GC neg negati ve normal This repor t is inten ded for us in clini naren monit oring and manag ement of patie nts. It is not inten ded for use in medic al-le gal appli catio n. Not Available [address], [address], 11/10/2022 10:40:25 11/07/19 23 11/07/2022 urina lysis , dipst ick Leukocytes Negati ve Not Available [facility] [address] [place], [address], 11/07/2022 12:43:37 11/07/19 23 11/07/2022 urina lysis , dipst ick Nitrite negati ve Not Available [address] [facility] [address], [place], [address], 11/07/2022 12:43:37 11/07/19 23 11/07/2022 urina lysis , dipst ick Urobilinogen 2 Not Available [facility] [address], [place], [address], 11/07/2022 12:43:37 11/07/19 23 11/07/2022 urina lysis , dipst ick Protein 30 Not Available [address], [place], [address], 11/07/2022 12:43:37 11/07/19 23 11/07/2022 urina lysis , dipst ick pH 6.5 Not Available [address], [place], [address], 11/07/2022 12:43:37 11/07/19 23 11/07/2022 urina lysis , dipst ick Blood Negati ve Not Available [address], [place], [address], 11/07/2022 12:43:37 11/07/19 23 11/07/2022 urina lysis , dipst ick Specific [place]wingle 1.020 Not Available [facility] [address], [place], [address], 11/07/2022 12:43:37 11/07/19 23 11/07/2022 urina lysis , dipst ick Ketone Negati ve Not Available [address] [address], [place], [address], 11/07/2022 12:43:37 11/07/19 23 11/07/2022 urina lysis , dipst ick Bilirubin Negati ve Not Available [address], [place], [address], 11/07/2022 12:43:37 11/07/19 23 11/07/2022 urina lysis , dipst ick Glucose Negati ve Not Available [address], [place], [address], 11/07/2022 12:43:37 11/07/19 23 11/07/2022 urina lysis , dipst ick Appearance Slight ly Cloudy Not Available [address], [place], [address], 11/07/2022 12:43:37 11/07/19 23 11/07/2022 urina lysis , dipst ick Color [place] Not Available [address], [place], [address], 11/07/2022 12:43:37 04/02/20 24 04/03/2024 HCG, TOTAL , QN HCG, total, qn 3145 mIU/m L high Refer ence Range Nonpr egnan t or preme nopau rose <5 Postm enopa usal <10 Value s from diffe rent assay metho ds may vary. The use of this assay to monit or or to diagn ose patie nts with cance r or any condi tion unrel ated to pregn ankur has not been clear ed or appro marcia by the FDA or the [facility] actur er of the assay . Not Available [facility] [address], [place], [address], 04/03/2024 06:41:26 04/02/2004/03/2024 VAGIN ITIS PLUS STD PANEL bacterial vaginosis BV neg negati ve normal Not Available [address], [address], 04/03/2024 14:13:39 04/02/20 24 04/03/2024 VAGIN ITIS PLUS STD PANEL eula species C. spp neg negati ve normal Not Available [address], [address], 04/03/2024 14:13:39 04/02/20 24 04/03/2024 VAGIN ITIS PLUS STD PANEL eula glabrata C. gla neg negati ve normal Not Available [address], [address], 04/03/2024 14:13:39 04/02/20 24 04/03/2024 VAGIN ITIS PLUS STD PANEL trichomonas vaginalis CV/TV TRICH neg negati ve normal Not Available [address], [address], 04/03/2024 14:13:39 04/02/20 24 04/03/2024 VAGIN ITIS PLUS STD PANEL chlamydia trachomatis CT neg negati ve normal This repor t is inten ded for us in clini naren monit oring and manag ement [facility]. It is not inten ded for use in medic al-le gal appli catio n. Not Available [address], [address], 04/03/2024 14:13:39 04/02/20 24 04/03/2024 VAGIN ITIS PLUS STD PANEL neisseria gonorrhoeae GC neg negati ve normal This repor t is inten ded for us in clini naren monit oring and manag ement of patie nts. It is not inten ded for use in medic al-le gal appli catio n. Not Available [address], [address], 04/03/2024 14:13:39 04/02/20 24 04/02/2024 pregn ankur test, urine HCG positi ve Not Available [facility] [address], [place], [address], 04/02/2024 16:21:18 Result Notes None recorded. Problems No Known Problems Procedures Surgical History Date Name Laterality Status Provider Name and Address Organization Details Recorded Time 2 Date of Last Pap Smear completed Judie Echeverria [facility] 03/28/2023 15:37:48 8 dilation and curettage completed Kathrine Flowers [facility] IV 07/25/2022 10:49:48 Breast Reduction completed Nkechi Muñoz [facility] [employer] [facility] IV 09/17/2023 13:59:01 Imaging Results None recorded. Procedure Notes None recorded. Medical Equipment None Reported. Allergies No known drug allergies Medications Name Sig Start Date Stop Date Status Note LastModified by Organization Details LastModified Time Mirena 21 mcg/24 hr (up to 8 years) 52 mg intrauter ine device 06/28 completed Mirena 20 mcg/24 hours (5 yrs) 52 mg Intraute rine Intraute rine Device RxNorm: [id number] Allow Substitu tion: False Refill Denied: No Refill DateOccu rred: 11/01/19 21 Edited by: Caprice Palma ) on 06/28/20 21 Stopped by: Caprice Palma ) on 06/28/20 21 Not Available Not Available Not Available methocarb paco 500 mg tablet 08/08 completed Not Available Not Available Not Available doxycycli ne hyclate 100 mg capsule TAKE 1 CAPSULE BY MOUTH EVERY 12 HOURS FOR 14 DAYS 04/02 completed Not Available Not Available Not Available clindamyc in HCl 300 mg capsule TAKE ONE CAPSULE BY MOUTH EVERY 8 HOURS FOR 7 DAYS 09/17 completed Not Available Not Available Not Available ibuprofen 800 mg tablet TAKE 1 TABLET BY MOUTH THREE TIMES DAILY 08/08 completed Not Available Not Available Not Available fluconazo le 150 mg tablet TAKE 1 TABLET BY MOUTH EVERY DAY FOR 1 DAY DIRECTED FOR YEAST INFECTIO N 04/02 completed Not Available Not Available Not Available valacyclo vir 1 gram tablet TAKE 1 TABLET BY MOUTH TWICE DAILY FOR 10 DAYS 04/02 completed Not Available Not Available Not Available metronida zole 0.75 % (37.5 mg/5 gram) vaginal gel INSERT 1 APPLICAT IONFUL VAGINALL Y DAILY X 5 DAYS 04/02 completed Not Available Not Available Not Available ceftriaxo ne 250 mg solution for injection 250 mg IM x 1, bring to office for injectio n 06/20 completed Ceftriax one Sodium 250mg Powder for Injectio n RxNorm: [id number] Allow Substitu tion: True Refill Denied: No Not Available Not Available Not Available penicilli n V potassium 500 mg tablet TAKE 1 TABLET BY MOUTH FOUR TIMES DAILY 09/17 completed Not Available Not Available Not Available metronida zole 500 mg tablet TAKE 1 TABLET BY MOUTH TWICE DAILY FOR 14 DAYS 04/02 completed Not Available Not Available Not Available ciproflox acin 500 mg tablet 08/08 completed Not Available Not Available Not Available doxycycli ne monohydra te 100 mg tablet 11/07 completed Not Available Not Available Not Available tramadol 50 mg tablet TAKE 1 TABLET BY MOUTH EVERY 6 HOURS 08/08 completed Not Available Not Available Not Available acetamino phen 500 mg tablet 11/07 completed Not Available Not Available Not Available ketorolac 10 mg tablet TAKE 1 TABLET BY MOUTH EVERY 6 HOURS NEEDED FOR PAIN 09/17 completed Not Available Not Available Not Available Vitamin tablet Take 1 taablet by mouth daily. 05/15 completed Multivit [place] Tablet Allow Substitu tion: True Refill Denied: No Not Available Not Available Not Available ferrous sulfate 325 mg (65 mg iron) tablet take 1 tablet (325 mg) by oral route once daily 09/06 completed ferrous sulfate 325 mg (65 mg iron) oral tablet RxNorm: [id number] Allow Substitu tion: True Refill Denied: No Edited by: Nancy Larios ) on 09/06/20 Stopped by: Nancy Larios ) on 09/06/20 20 Not Available Not Available Not Available lidocaine 5 % topical patch 09/17 completed Not Available Not Available Not Available nystatin- triamcino lone 100,000 unit/g-0. 1 % topical cream apply to the affected area(s) by topical route 2 times per day in themorni ng and evening for 7 days 08/08 completed nystatin -triamci nolone 100,000- 0.1 unit/g-% Topical Cream RxNorm: [id number] Allow Substitu tion: True Refill Denied: No Edited by: Jens eyes, Selin ) on 06/16/20 20 Stopped by: priscilla(R eyes, Selin ) on Not Available Not Available Not Available docusate sodium 100 mg capsule 11/07 completed Not Available Not Available Not Available ibuprofen 600 mg tablet 11/07 completed Not Available Not Available Not Available celecoxib 100 mg capsule 08/08 completed Not Available Not Available Not Available ondansetr on 4 mg disintegr ating tablet DISSOLVE 1 TABLET ON TONGUE EVERY 6 HOURS NEEDED FOR NAUSEA/V OMITING 09/17 completed Not Available Not Available Not Available naproxen 500 mg tablet TAKE 1 TABLET BY MOUTH EVERY 12 HOURS WITH FOOD OR MILK 09/17 completed Not Available Not Available Not Available amoxicill in 875 mg-potass ium clavulana te 125 mg tablet TAKE 1 TABLET BY MOUTH EVERY 12 HOURS FOR 7 DAYS 04/02 completed Not Available Not Available Not Available amoxicill in 500 mg-potass ium clavulana te 125 mg tablet TAKE 1 TABLET BY MOUTH EVERY 12 HOURS FOR 7 DAYS 03/28 completed Not Available Not Available Not Available oxycodone 5 mg tablet 11/07 completed Not Available Not Available Not Available Zithromax 500 mg tablet Take 2 tablets by mouth now 06/20 completed Zithroma x 500mg Tablet RxNorm: [id number] Allow Substitu tion: True Refill Denied: No Not Available Not Available Not Available nitrofura ntoin monohydra te/macroc rystals 100 mg capsule TAKE 1 CAPSULE BY MOUTH TWICE DAILY FOR 7 DAYS 11/07 completed Not Available Not Available Not Available omeprazol e 11/05 completed omeprazo le RxNorm: 765860 Allow Substitu tion: False Refill Denied: No Refill DateOccu rred: 10/15/20 Edited by: Zahra Savage ) on 11/05/19 20 Stopped by: lila( Zahra Foote ) on 11/05/19 Not Available Not Available Not Available cefixime Take 1 capsule one time by mouth 06/23 completed Cefixime 400mg Capsules Allow Substitu tion: True Refill Denied: No Refill Note: Auto Aged Refill DateOccu rred: 04/24/20 Not Available Not Available Not Available ferrous sulfate 1 tablet q 12 hours 06/16 completed ferrous sulfate RxNorm: 961864 Allow Substitu tion: False Refill Denied: No Refill DateOccu rred: 11/25/19 Edited by: fracisco(Nancy Ro ) on 06/16/20 Stopped by: fracisco(Nancy Ro ) on 06/16/20 Not Available Not Available Not Available iron 08/08 completed iron RxNorm: 509565 Allow Substitu tion: False Refill Denied: No Refill DateOccu rred: 06/28/20 Edited by: Melany negro(Schifa no, Anja B) on 06/30/20 Stopped by: Melany negro(Schifa no, Anja B) on Not Available Not Available Not Available Colace 1 bid 12/22 completed Colace RxNorm: 82610 Allow Substitu tion: False Refill Denied: No Refill DateOccu rred: 11/25/19 Edited by: jose choudhary(Mayra Mejía ) on 12/23/19 Stopped by: jose nd(Mayra Mejía ) on 12/23/19 Not Available Not Available Not Available famotidin e 08/08 completed famotidi ne RxNorm: 4090869 Allow Substitu tion: False Refill Denied: No Refill DateOccu rred: 06/28/20 Edited by: Melany negro(Schifa no, Anja B) on 06/30/20 Stopped by: Melany negro(Schifa no, Anja B) on Not Available Not Available Not Available Tylenol with codeine 1 q 6 hrs prn 06/16 completed TylenoL RxNorm: 049075 Allow Substitu tion: False Refill Denied: No Refill DateOccu rred: 11/25/19 Edited by: Nancy Larios ) on 06/16/20 Stopped by: fracisco(Nancy Ro ) on 06/16/20 Not Available Not Available Not Available cyclobenz aprine 06/28 completed cycloben zaprine RxNorm: 93420 Allow Substitu tion: False Refill Denied: No Refill DateOccu rred: 06/16/20 Edited by: [email or web address] viviane(Mojgan Olguin ) on 06/28/20 Stopped by: hmussema viviane(Mojgan Olguin ) on 06/28/20 Not Available Not Available Not Available norethind hakan 1 mg-ethiny l estradiol 20 mcg (24)-iron 75 mg (4) tablet take 1 tablet by oral route once daily 04/25 completed norethin drone-e. estradio L-iron 1 mg-20 mcg (24)/75 mg (4) oral tablet RxNorm: [id number] Allow Substitu tion: True Refill Denied: No Edited by: fracisco(Nancy Ro ) on 04/25/20 Stopped by: fracisco(Nancy Ro ) on 04/25/20 Not Available Not Available Not Available Endometri n 08/08 completed Endometr in RxNorm: [id number] Allow Substitu tion: False Refill Denied: No Refill DateOccu rred: 06/28/20 Edited by: Melany negro(Schifa no, Anja B) on 06/30/20 Stopped by: Melany negro(Schifa no, Anja B) on Not Available Not Available Not Available 28 mg iron-800 mcg tablet Take 1 tablet by mouth daily. 08/08 completed 28 mg iron- 800 mcg oral tablet Allow Substitu tion: True Refill Denied: No Edited by: priscilla(R eyes, Selin ) on 11/04/19 Stopped by: priscilla(Leona eyes, Selin ) on Not Available Not Available Not Available PreviDent 5000 Booster Plus 1.1 % dental paste BRUSH NORMAL THEN PLACE A PEA SIZE AMOUNT ON BRUSH AND BRUSH AGAIN NOTHING BY MOUTH OR RINSING FOR 30 MINUTES 10/19 /2022 completed Not Available Not Available Not Available Fioricet 50 mg-300 mg-40 mg capsule take 1 capsule by mouth BID as needed for headache 12/22 completed Fioricet 50-300-4 0 mg oral capsule RxNorm: [id number] Allow Substitu tion: True Refill Denied: No Edited by: Mayra Ortiz ) on 12/23/19 Stopped by: jose choudhary(Mayra Mejía ) on 12/23/19 Not Available Not Available Not Available Nuvessa 1.3 % (65 mg/5 gram) vaginal gel INSERT 1 APPLICAT ORFUL VAGINALL Y 1 TIME IN THE EVENING FOR 5 DAYS 09/17 completed Not Available Not Available Not Available Vitals Date Recorded Body height Body mass index (BMI) Body weight Body temperature Systolic And Diastolic Provider Name and Address Organization Details Last Updated DateTime 11/07/2022 165.1 cm 30.3 kg/m2 39657.8 1 g 98 [degF] 112/68 mm[Hg] Caprice Britmorenita [employer] [facility] 3 12:26:33 Date Recorded Body height Body mass index (BMI) Body weight Systolic And Diastolic Provider Name and Address Organization Details Last Updated DateTime 04/02/2024 165.1 cm 32.9 kg/m2 92001.29 g 122/80 mm[Hg] Afua Matthew [employer] [facility] 04/02/2024 16:03:49 Date Recorded Body height Body mass index (BMI) Body weight Body temperature Systolic And Diastolic Provider Name and Address Organization Details Last Updated DateTime 08/08/2022 165.1 cm 31.6 kg/m2 05325.5 5 g 97 [degF] 100/60 mm[Hg] Julian Martínez [employer] [facility] 2 12:13:44 Date Recorded Body height Body mass index (BMI) Body weight Body temperature Systolic And Diastolic Provider Name and Address Organization Details Last Updated DateTime 09/17/2023 165.1 cm 30.4 kg/m2 22354.9 7 g 97.1 [degF] 114/70 mm[Hg] Nkechi Muñoz [employer] [facility] 14:05:07 Social History Question Answer Notes LastModified by [employer] Details LastModified Time Tobacco Smoking Status Never [facility] 08/08/2022 12:09:45 Are You Blind Or Do You Have Difficulty Seeing? No Information not available 08/08/2022 Are You Deaf Or Do You Have Serious Difficulty Hearing? No Information not available 08/08/2022 What Type Of Diet Are You Following? REGULAR Information not available 08/08/2022 What Is The Highest Grade Or Level Of School You Have Completed Or The Highest Degree You Have Received? [id number] [email or web address] Information not available 09/17/2023 How Many Children Do You Have? 1 Information not available 08/08/2022 What Is Your Relationship Status? Single Information not available 08/08/2022 Are You Sexually Active? Yes Information not available 08/08/2022 Sex: Female Functional Status Question Answer Note LastModified by [employer] Details LastModified Time Do you use any illicit or recreational drugs? No Information not available 08/08/2022 What is your level of alcohol consumption? None Information not available 08/08/2022 Are you currently employed? No Information not available 09/17/2023 What is your exercise level? None Information not available 08/08/2022 Mental Status None recorded. Family History Relationship Description Onset Age of this Age Resolved Age Notes LastModified by Organization Details LastModified Time Father No current problems or disability [email or web address] Not available 02/2022 10:49:29 Mother No current problems or disability [email or web address] Not available 02/2022 10:49:29 Medical History Condition Response Other Cancer N High Blood Pressure N Colon Cancer N Cytomegalovirus N Hyperthyroidism N MRSA N Blood Transfusion N Herpes (HSV) N Breast Cancer N Lung Cancer N Depression N Hypothyroidism N Incontinence N Panic Attacks N Neurological Disorder N Deep Vein Thrombosis N Anxiety Disorder N Autoimmune disease N Arthritis N Shingles N Tuberculosis/Positive PPD N Polycystic Ovarian Syndrome N Cervical Cancer N Chlamydia N Hematuria N Stroke N Varicosities N Seasonal allergies N Crohn's Disease N Alzheimer's/Dementia N COPD/Emphysema N Endometriosis N HPV/Genital Warts N IBS (Irritable Bowel Syndrome) N History of Abnormal Pap N High Cholesterol N Liver Disease N Kidney Infection N Fibromyalgia N Ulcer N Kidney Disease N HIV N Gallbladder disease N Von Willebrand disease N Sickle Cell Disease/Trait N ADD/ADHD N Eating Disorder N Diabetes Mellitus (non-insulin dependent ) N Anemia Y Ovarian Problems N Multiple Sclerosis N Gonorrhea N Frequent Urinary Tract infections N Osteopenia N Headaches/migraines N GERD (reflux) N Ovarian Cancer N Diabetes (insulin dependent) N Seizures/Epilepsy N Fibroids N Asthma N Heart Attack N Endometrial Cancer N Lupus N Rubella N Blood Clotting Disorder N Bipolar Disorder N Diabetes Mellitus (during ) N Ulcerative Colitis N Hepatitis N Heart Disease N Pulmonary Embolism N RPR N Chicken Pox N Osteoporosis N Gynecological History Statement/Question Response Flow Moderate Date of LMP 02/23/2024 HPV Vaccine Y Duration of Flow (days) 7 Most Recent Mammogram Current Control Method None Age at Menarche 14 Date of Last Colonoscopy Most Recent Bone Density Frequency of Cycle (Q days) 28 Date of Last Pap Smear 08/08/2022 Obstetrics History GPAL:G 3 P 1 0 2 1 Type Value Full Term 1 Induced 1 Spontaneous 1 Living 1 Total 3 Past Encounters Encounter ID Performer Location Encounter Start Date Encounter Closed Date Diagnosis/Indication Diagnosis SNOMED-CT Code Diagnosis ICD10 Code Diagnosis IMO Codes Diagnosis Note [id number] Kathryn Yost CNM [facility] [address] [place] [address] 08/08/2022 12:00:52 08/08/2022 16:34:42 Gynecologic examination 40961053 Z01.419 Screening for malignant neoplasm of cervix 750378022 Z12.4 Contracept ion care education 901180538 Z30.09 Is not using condoms and not interested in contracept ion however she does not wish to achieve . Stressed importance of condom use since she is against any hormonal contracept ion or IUD and daily PNV. [id number] SAHIL Nielson [facility] [address] [place] [address] 11/07/2022 12:10:55 11/07/2022 12:55:16 Increased frequency of urination 226094473 R35.0 UA dip negative.C x obtained and will call with results once available Vaginal irritation 07986 6004 N89.8 Vaginal discharge 482693 006 N89.8 Bacterial vaginosis 4197 26796 N76.0 Explained BV and causes. 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 Medical, family and social history reviewed. The patient denies any changes. Adequate changes were made. A nnual Exam:She reports having no significan t LEAD CUSTODIAN symptoms.H er menses are regular, occurring every 1 month(s). Menses lasts for 3 or 4 days. Reports they are not heavy or painful. Denies spotting in between.Pt is currently using for contracept ion. She is satisfied with her current method, refills sent. P ap History: 08/08/2022 NILMShe is not due for papNot collected Today B reast History:Williams yancey denies breast symptoms. Education on Breast Self Awareness given.Marcela ent is under 40-mammogr am not indicated F amily History:Ne gative for Breast Cancer, Cervical Cancer, Colon Cancer, Endometria l Cancer and Ovarian Cancer. S ocial History:Williams yancey is currently sexually active. She denies complaints about sexual activity. Patient reports feeling safe at home from emotional, physical, and verbal abuse.She does not desire STD testing. Just had testing last week at ER and was told that she had CT, BV and Trich. Picking up medication s today. E xercise: Occasional She wears her seat belt. She does not text and drive.The patient denies smoking and recreation al drugs. She denies drinking alcohol. P atient is regularly seen by PCP for preventati ve care: Yes Screening for malignant neoplasm of cervix 141097357 Z12.4 ASCCP guidelines reviewed with patient. No pap collected today. Pt states understand ing and is amenable to POC. Screening for malignant neoplasm of breast 866284580 Z12.39 Pt educated on breast cancer screening guidelines . Denies any concerns with breast at this time. Denies any lumps, bumps, nipple discharge or unusual soreness. Pt states understand ing of POC. Venereal d isease screening 588368434 Z11.3 Pt educated on importance of condom use for protection against STD's. Just had testing last week at ER and was told that she had CT, BV and Trich. Picking up medication s today. Will return in 3 months for CELSO from CT, Trich. Depression screening 171 319948 Z13.31 PHQ9: 0. Pt educated on normal scoring, and discussed depression precaution s and when to notify HCP/go to ER. [id number] SAHIL Lopes [facility] [address] [place] [address] 04/02/2024 15:58:19 04/02/2024 16:38:33 Vaginal discharge 171885721 N89.8 N76.0 - Reviewed vulvar hygiene: avoid tight or moist clothing, soaps, Vagisil and other wipes, cotton underwear only and sleep without, unscented detergent - RTO for annual or as needed Acute vaginitis 35147656 N76.0 test positive 258789193 Z32.01 UPT in office is positive. Pt educated on dietary recommenda tions, to take PNV daily, on Threatened Ab precaution s, and when to notify HCP/go to ER. Plan to F/U in next week for confirmati on visit Amenorrhea 91369322 N91. 2 Health Concerns Section Related Observation LastModified by Organization Detai ls LastModified Time None Recorded Concern Status LastModified by Organization Details LastModified Time None Recorded Advance Directives Directive None Recorded Payers Insurance Date Sequence Insurance Name Policy Number Policy Lowery Covered Member ID Lowery Member ID Guarantor Name 04/13/2024 [facility] - DOS ON OR AFTER 21 (MEDICAID REPLACEMENT - HMO) Rosy Pierson [id number] Rosy Pierson 09/17/2023 1 [facility] (MEDICARE REPLACEMENT/AD VANTAGE - HMO) Rosy Pierson [id number] Luisitomagaly Schmitz Kenna 04/16/2024 1 [place] [facility] Rosy Pierson [id number] Luisitoalfamariluz Schmitz Pierson Notes Date Note Type Note Provider Name and Address Organization Details Recorded Time 2 text/html Annual GYNReported by PatientGenitourinary symptomsFor menstrual cycle, patient reportsnormal menses. For urinary symptoms, patient reportsno hematuriaandno incontinence. For vulva, patient reportsno genital lesion. For vagina, patient reportsnormal vaginal discharge.Breast symptomsFor breast, patient reportsno breast pain,no breast lump, andno nipple discharge.Endocrine symptomsFor sexual complaints, patient reportsno sexual complaints,no pain during intercourse, andnormal libido. For menopausal symptoms, patient reportsno menopausal symptomsandnormal vaginal lubrication.Psychological symptomsFor psychological symptoms, patient reportsno depression,no anxiety, andno pmdd.ROS as noted in the HPI Patient is here for annual exam with pap Kathryn Yost CNM [address] [place], [address], [facility] 08/08/2022 12:35:43 3 text/html Rosy presents with c/o vaginal discharge, odor, urinary frequencyShe denies pelvic pain, fever, vulvar irritation.She was seen at Urgent Care and treated for BV at the beginning of October. States symptoms never went away. SAHIL Nielson [address] [facility], [place], [address], [facility] [employer] [facility] 11/07/2022 12:54:57 3 text/html Annual GYNReported by PatientROS as noted in the HPI Kyriesha is here for annual exam. Last pap 12/02/19. LMP 09/09/23. Pt declines std testing. TAMARA MATTHEW [address] [place], [address], [facility] 09/17/2023 14:26:09 4 text/html Vaginal/Vulvar ProblemReported by PatientROS as noted in the HPI Kyriesha is here for c/o vaginal discharge, vaginal burningShe has a hx of recurrent vaginal infectionsHer LMP was 02/23/2024Her last pap was 08/08/22 NIMLHer current BCM: none SAHIL Lopes [address] [facility], [place], [address], [facility] 04/02/2024 16:55:52 OBGyn Episode Ob Episode Information Episode Created Date Number of Fetuses Patient Bloodtype Patient rh Status Prepregnancy Weight lbs Domestic Partner Domestic Partner Phone Father Name [employer] Captain Status 01/05/20 1 CLOSED Fetus Data First Name Last Name Admitted to NICU Weight (g) Sex Living Outcome Pediatric Complications Fetus ID Race Codes Race Delivery Type [id number] Fernando Calculation Initial Fernando Date Initial Exam Date Initial Exam Provider Initial Ultrasound Date Last Menstrual Period Date Ultra Sound Weeks Gestation 0 Eighteen To Twenty Week Fernando Update Ultra Sound Date Fundal Height At Umbil Quickening Date Ultra Sound Latest Weeks Gestation Final Fernando Confirmed By Final Fernando Confirmed Date Final Fernando Date Ultra Sound Latest Days Gestation 0 0 Menstrual History Last Menstrual Date Menses Monthly On Bcp Conception Prior Menses Frequency Hcg Plus Date Menarche Onset Age Delivery Information Delivery Date Delivery Type Labor Anesthesia Weeks Gestation Incision Type Labor Labor Length Hrs Delivered By Post Complications Tubal Sterilization Discharge Date Comments 8 None 67 false Discharge Information Feeding Method Contraceptive Method Maternal HG B and HCT Levels Ob Episode Information Episode Created Date Number of Fetuses Patient Bloodtype Patient rh Status Prepregnancy Weight lbs Domestic Partner Domestic Partner Phone Father Name [employer] Captain Status 01/05/20 1 CLOSED Fetus Data First Name Last Name Admitted to NICU Weight (g) Sex Living Outcome Pediatric Complications Fetus ID Race Codes Race Delivery Type [id number] 2 [id number] Fernando Calculation Initial Fernando Date Initial Exam Date Initial Exam Provider Initial Ultrasound Date Last Menstrual Period Date Ultra Sound Weeks Gestation 0 Eighteen To Twenty Week Fernando Update Ultra Sound Date Fundal Height At Umbil Quickening Date Ultra Sound Latest Weeks Gestation Final Fernando Confirmed By Final Fernando Confirmed Date Final Fernando Date Ultra Sound Latest Days Gestation 0 0 Menstrual History Last Menstrual Date Menses Monthly On Bcp Conception Prior Menses Frequency Hcg Plus Date Menarche Onset Age Delivery Information Delivery Date Delivery Type Labor Anesthesia Weeks Gestation Incision Type Labor Labor Length Hrs Delivered By Post Complications Tubal Sterilization Discharge Date Comments 0 None 264 true Discharge Information Feeding Method Contraceptive Method Maternal HG B and HCT Levels Ob Episode Information Episode Created Date Number of Fetuses Patient Bloodtype Patient rh Status Prepregnancy Weight lbs Domestic Partner Domestic Partner Phone Father Name [employer] Captain Status 01/05/20 22 1 CLOSED Fetus Data First Name Last Name Admitted to NICU Weight (g) Sex Living Outcome Pediatric Complications Fetus ID Race Codes Race Delivery Type [id number] Fernando Calculation Initial Fernando Date Initial Exam Date Initial Exam Provider Initial Ultrasound Date Last Menstrual Period Date Ultra Sound Weeks Gestation 0 Eighteen To Twenty Week Fernando Update Ultra Sound Date Fundal Height At Umbil Quickening Date Ultra Sound Latest Weeks Gestation Final Fernando Confirmed By Final Fernando Confirmed Date Final Fernando Date Ultra Sound Latest Days Gestation 0 0 Menstrual History Last Menstrual Date Menses Monthly On Bcp Conception Prior Menses Frequency Hcg Plus Date Menarche Onset Age Delivery Information Delivery Date Delivery Type Labor Anesthesia Weeks Gestation Incision Type Labor Labor Length Hrs Delivered By Post Complications Tubal Sterilization Discharge Date Comments 0 None 102 false Discharge Information Feeding Method Contraceptive Method Maternal HG B and HCT Levels
--- OUTSIDE RECORDS SUMMARY | 2025-08-05 18:03 | XMS_ITS | Clinical Summary ---
Author Organization [facility] [employer] Address [address] [place] [address] Care Team Providers Care Insurance Processing Clerk Name Role Phone Jolene Smiley Primary Care Provider [phone] Source Comments [facility] [employer],non-owned Affiliates and Associated Physician Practices is amultiple site organization consisting of ambulatory clinics and hospital sitesin [place], [place], [place] and [place]. This disclosure is being madepursuant to the Care Everywhere program and may not contain all information available regarding this patient. Last updated 18.[facility] [employer] Allergies No known active allergies Medications * Be aware that medications may not be up to date on this document. Alwaysverify current medications with the patient. Vit-Fe Fumarate-FA ( VITAMIN) 28-0.8 MG tablet Take 1 tablet by mouth once daily Active famotidine (PEPCID) 20 MG tablet Take 1 tablet by mouth once daily 30 tablet 3 10/12/2019 Active fluconazole (Diflucan) 150 MG tablet Take 1 (one) tablet by mouth once daily 1 tablet 08/24/2022 Active ibuprofen (Motrin) 800 MG tablet Take 1 (one) tablet by mouth every 6 hours as needed for Pain 30 tablet 10/06/2022 Active metaxalone (Skelaxin) 800 MG tablet Take 1 (one) tablet by mouth 3 times daily as needed for Muscle Spasms 21 tablet 06/06/2023 Active ketorolac (Toradol) 10 MG tablet Take 1 (one) tablet by mouth every 6 hours as needed for Pain 20 tablet 06/06/2023 Active lidocaine (Lidoderm) 5 % patch Apply 1 (one) patch to skin once daily Apply patch to most painful area and remove after 12 hours. May reapply a new patch 12 hours later. 5 patch 06/06/2023 Active Active Problems Patient Care Coordination No te Formatting of this note migh t be different from the original. NOPP MFM 02/2018 Problem Noted Date Diagnosed Date Abdominal pain, generalized 10/12/2019 Chest pain 10/12/2019 Encounter for removal of subdermal contraceptive implant 03/07/2018 Encounters Date Type Department Care Team Description 08/04/2025 9:50 PM CDT - 08/04/2025 9:58 PM CDT Emergency [facility] [address] [place] [id number] Chest pain, unspecified type Discharge Disposition: Left Against Medical Advice/Discontinued Care 08/04/2025 Travel from Last 3 Months Social History Tobacco [...] Orientation Straight 07/30/2024 1: 34 AM CDT Last Filed Vital Signs Vital Sign Reading [...] Mass Index 29.95 08/04/2025 6:26 PM CDT Plan of Treatment Health Maintenance Due Date Last Done Comments DTAP/TDAP/TD VACCINES (1 - Tdap) 2013 HEPATITIS B VACCINE (1 of 3 - 19+ 3-dose series) 2013 PAP SMEAR 2015 HPV VACCINE (1 - 3-dose SCDM series) 2021 DEPRESSION SCREENING 10/21/2024 COVID-19 VACCINE (2 - 2024-2 6 season) 2025 05/13/2023 INFLUENZA VACCINE (#1) 2025 11/06/2024 ZOSTER VACCINE (1 of 2) 2044 HEPATITIS C SCREENING Completed 05/31/2025 , 12/06/2023 HIV SCREENING Completed 05/31/2025, 12/06/2023 HIB VACCINE Aged Out No longer eligi ble based on patient's age to complete this topic MENINGOCOCCAL (Group B) VACCINE SHARED DECISION-MAKING Aged Out No longer eligible based on patient's age to complete this topic MENINGOCOCCAL GROUPS A/C/Y/W VACCINE Aged Out No longer eligible b ased on patient's age to complete this topic PNEUMOCOCCAL VACCINE Aged Out No long er eligible based on patient's age to complete this topic Procedures Procedure Name Priority Date/Time Associated Diagnosis Comments CARDIAC EKG ORDER 08/05/2025 11: 35 AM CDT TROPONIN-I HIGH SENSITIVE REFLEX 1HOUR Timed 08/04/2025 9:35 PM CDT HCG BETA BLOOD QUANTITATIVE STAT 08/04/2025 7:00 PM CDT TROPONIN-I HIGH SENSITIVE BASELINE + 1HR STAT 08/04/2025 7:00 PM CDT MAGNESIUM BLOOD STAT 08/04/2025 7:00 PM CDT COMPREHENSIVE METABOLIC PANEL STAT 08/04/2025 7:00 PM CDT CBC W AUTO DIFFERENTIAL STAT 08/04/2025 7:00 PM CDT EKG 12-LEAD Routine 08/04/2025 6:29 PM CDT Chest pain, unspecified type HEPATITIS SCREEN ACUTE STAT 1:40 AM PEDIATRIC ASSISTANT HIV-1 HIV-2 ANTIBODY + HIV P24 AG PANEL STAT 12/06/2023 1:40 AM PEDIATRIC ASSISTANT from Last 3 Months or Most Recently Relevant to Health Maintenance Results * CARDIAC EKG ORDER (08/05/2025 11:35 AM CDT) Narrative 08/05/2025 11:35 AM CDT Ordered by an unspecified provider. us Scanned Document CARDIAC SERVICES ORDERABLES Fin al Result * TROPONIN-I HIGH SENSITIVE REFLEX 1HOUR (08/04/2025 9:35 PM CDT) Troponin I High Sensitive <3 <=14 ng/L 08/04/2025 10:15 PM CDT [facility] Delta Troponin I HS 08/04/2025 10:15 PM CDT [facility] Comment:Delta value intentio anisha not calculated. Baseline to 1 hour specimen collection interval exceeded. Blood BLOOD SPECIMEN / Unknown Venipuncture / Unknown 08/04/2025 9:35 PM CDT 08/04/2025 9:40 PM CDT Fadia Ardon PA-C LAB - CHEMISTRY ORDER TIM Final Result [address] [address], [facility] [phone] * TROPONIN-I HIGH SENSITIVE BASELINE + 1HR (08/04/2025 7:00 PM CDT) Pathologist [facility] Troponin I High Sensitive <3 <=14 ng/L 08/04/2025 7:47 PM CDT [facility] Blood BLOOD SPECIMEN / Unknown Venipuncture / Unknown 08/04/2025 7:00 PM CDT 08/04/2025 7:14 PM CDT Fadia SILVERMAN-C LAB - CHEMISTRY ORDER TIM Final Result [address] [address], [place] [phone] * (ABNORMAL) CBC W AUTO DIFFERENTIAL (08/04/2025 7:00 PM [facility]) [facility] Signature WBC 8.2 4.0 - 10.7 x10E9/L 08/04/2025 7:41 PM [facility] RBC Count 3.83(L) 3.90 - 5.20 x10E12/L 08/04/2025 7:41 PM [facility] Hemoglobin 10.4(L) 11.9 - 15.8 g/dL 08/04/2025 7:41 PM [facility] Hematocrit 33.2(L) 34.8 - 46.1 % 08/04/2025 7:41 PM [facility] MCV 86.7 80.0 - 98.0 fL 08/04/2025 7:41 PM [facility] MCH 27.2 26.7 - 33.6 pg 08/04/2025 7:41 PM [facility] MCHC 31.3(L) 31.7 - 36.3 g/dL 08/04/2025 7:41 PM [facility] RDW-CV 14.1 11.3 - 14.8 % 08/04/2025 7:41 PM [facility] Platelet Count 212 150 - 420 x10E9/L 08/04/2025 7:41 PM [facility] MPV 12.8(H) 7.8 - 11.4 fL 08/04/2025 7:41 PM [facility] Neutrophil % 65.4 41.0 - 74.0 % 08/04/2025 7:41 PM [facility] Lymphocyte % 26.2 17.0 - 47.0 % 08/04/2025 7:41 PM [facility] Monocyte % 7.0 3.0 - 11.0 % 08/04/2025 7:41 PM [facility] Eosinophil % 0.7 0.0 - 7.0 % 08/04/2025 7:41 PM [facility] Basophil % 0.2 0.0 - 1.6 % 08/04/2025 7:41 PM [facility] Immature Granulocytes % 0.5 0.0 - 1.0 % 08/04/2025 7:41 PM [facility] Neutrophil Absolute 5.36 1.60 - 7.50 x10E9/L 08/04/2025 7:41 PM [facility] Lymphocyte Absolute 2.15 1.00 - 4.40 x10E9/L 08/04/2025 7:41 PM [facility] Monocyte Absolute 0.57 0.15 - 1.00 x10E9/L 08/04/2025 7:41 PM [facility] Eosinophil Absolute 0.06 0.00 - 0.60 x10E9/L 08/04/2025 7:41 PM [facility] Basophil Absolute 0.02 0.00 - 0.13 x10E9/L 08/04/2025 7:41 PM [facility] Blood BLOOD SPECIMEN / Unknown Venipuncture / Unknown 08/04/2025 7:00 PM CDT 08/04/2025 7:14 PM CDT Fadia Ardon PA-C LAB - HEMATOLOGY LASHAY STANTON Final Result [facility] [address] [place] [phone], [facility] [phone] * (ABNORMAL) COMPREHENSIVE METABOLIC PANEL (08/04/2025 7:00 PM CDT) BUN 14 7 - 26 mg/dL 08/04/2025 7:44 PM [facility] Creatinine 0.76 0.56 - 0.96 mg/dL 08/04/2025 7:44 PM [facility] Sodium 137 136 - 145 mmol/L 08/04/2025 7:44 PM [facility] Potassium 3.9 3.5 - 4.5 mmol/L 08/04/2025 7:44 PM [facility] Chloride 104 98 - 107 mmol/L 08/04/2025 7:44 PM [facility] CO2 24 22 - 29 mmol/L 08/04/2025 7:44 PM [facility] Glucose 113(H) 70 - 99 mg/dL 08/04/2025 7:44 PM [facility] Calcium 9.1 8.4 - 10.2 mg/dL 08/04/2025 7:44 PM [facility] Protein Total 7.1 6.0 - 8.3 g/dL 08/04/2025 7:44 PM [facility] Albumin 4.0 3.4 - 5.0 g/dL 08/04/2025 7:44 PM [facility] Bilirubin Total 0.9 0.2 - 1.2 mg/dL 08/04/2025 7:44 PM [facility] Alkaline Phosphatase 66 40 - 150 U/L 08/04/2025 7:44 PM [facility] ALT 15 5 - 55 U/L 08/04/2025 7:44 PM [facility] AST 16 5 - 34 U/L 08/04/2025 7:44 PM [facility] Anion Gap 9 6 - 16 08/04/2025 7:44 PM [facility] BUN/Creatinine Ratio 18 7 - 23 08/04/2025 7:44 PM [facility] Osmolality Calculated 285 275 - 295 mOsm/kg 08/04/2025 7:44 PM [facility] Albumin/Globulin Ratio 1.3 1.1 - 2.3 08/04/2025 7:44 PM [facility] eGFR by CKD-EPI >90 >=90 mL/min/1.7 3 m2 08/04/2025 7:44 PM [facility] Comment:Estimated Glomerular Filtration Rate (eGFR) calculated using the CKD-EPI Creatinine Equation (2020), per the National Kidney Foundation and [place] [employer]ph[employer] recommendations. Blood BLOOD SPECIMEN / Unknown Venipuncture / Unknown 08/04/2025 7:00 PM CDT 08/04/2025 7:14 PM [facility] us Fadia Ardon PA-C LAB - CHEMISTRY ORDER TIM Final Result [facility] [address] [place] [address], [facility] [phone] * HCG BETA BLOOD QUANTITATIVE (08/04/2025 7:00 PM CDT) [facility] Beta-hCG Total Quantitative <3 mIU/mL 08/04/2025 7:47 PM CDT [facility] Comment: HCG Numeric Result Interpretation: Non- [...] PM CDT 08/04/2025 7:14 PM CDT Fadia SILVERMAN-C LAB - CHEMISTRY ORDER TIM Final Result [address] [address], [facility] [phone] * MAGNESIUM BLOOD (08/04/2025 7:00 PM CDT) [facility] Magnesium 1.6 1.6 - 2.6 mg/dL 08/04/2025 7:44 PM CDT [facility] Blood BLOOD SPECIMEN / Unknown Venipuncture / Unknown 08/04/2025 7:00 PM CDT 08/04/2025 7:14 PM [facility]T [facility] - CHEMISTRY ORDER TIM Final Result [address] [address], [place] [phone] * HIV-1 HIV-2 ANTIBODY + HIV P24 AG PANEL (12/06/2023 1:40 AM PEDIATRIC ASSISTANT) [facility] HIV1/2 Ab + P24 Ag Non Reactive Non Reactive 12/06/2023 2:39 AM PEDIATRIC ASSISTANT [facility] Blood BLOOD SPECIMEN / Unknown Venipuncture / Unknown 12/06/2023 1:40 AM PEDIATRIC ASSISTANT 12/06/2023 2:01 AM PEDIATRIC ASSISTANT Narrative [facility] - 12/06/2023 2:39 AM PEDIATRIC ASSISTANT No Laboratory evidence of HIV infection. Winifred Ellington MD LAB - CHEMISTRY ORDERABLES Final Result Performing Organization Address [facility] de Phone Number [facility] [address] [place], [place] [id number] * HEPATITIS SCREEN ACUTE (12/06/2023 1:40 AM PEDIATRIC ASSISTANT) [facility] HAV Antibody IgM Non Reactive Non Reactive 12/06/2023 2:41 AM PEDIATRIC ASSISTANT [facility] HBsAg Non Reactive Non Reactive 12/06/2023 2:41 AM PEDIATRIC ASSISTANT [facility] HBc Antibody IgM Non Reactive Non Reactive 12/06/2023 2:41 AM PEDIATRIC ASSISTANT [facility] HCV Antibody Screen Non Reactive Non Reactive 12/06/2023 2:41 AM PEDIATRIC ASSISTANT [facility] Blood BLOOD SPECIMEN / Unknown Venipuncture / Unknown 12/06/2023 1:40 AM PEDIATRIC ASSISTANT 12/06/2023 2:01 AM PEDIATRIC ASSISTANT Narrative [facility] - 12/06/2023 2:41 AM PEDIATRIC ASSISTANT Non Reactive - Antibodies to Hepatitis C virus (HCV) were not detected, result does not exclude early acute HCV infection. Winifred Ellington MD LAB - CHEMISTRY ORDERABLES Final Result Performing Organization Address [facility] de Phone Number [facility] [address] [place] [phone] from Last 3 Months or Most Recently Relevant to Health Maintenance Insurance [place] [address] [address] Advance Directives * Full Code (Latest Code Status on File) Date Activated Date Inactivated Comments 10/12/2019 6:20 PM 10/12/2019 10:06 PM Care Teams Insurance Processing Clerk Relationship Specialty Start Date End Date Jolene Smiley [address] [place] [phone] PCP - General 12/05/23
--- OUTSIDE RECORDS SUMMARY | 2025-08-05 18:03 | XMS_ITS | Encounter Summary ---
Author Organization [facility] Address [address] [place] [address] Care Team Providers Care Endless Track Vehicle Mechanic Name Role Phone Jolene Smiley Primary Care Provider [phone] Encounter Details Date Type Department Care Team (Latest Contact Info) Description 08/04/2025 Travel Social History Tobacco Use Types Packs/Day Years [...] AM CDT documented as of this encounter Functional Status * Is person deaf or have serious hearing difficulty? Answer Date of Assessment Author No 10/12/2019 8:59 PM Ulises Posey APRN-CNP * Is person blind or have serious difficulty seeing? Answer Date of Assessment Author No 10/12/2019 8:59 PM Ulises Posey APRN-CNP * Does person have serious difficulty walking/climbing stairs? Answer Date of Assessment Author No 10/12/2019 8:59 PM Ulises Posey APRN-CNP * Does person have difficulty dressing/bathing? Answer Date of Assessment Author No 10/12/2019 8:59 PM Ulises Posey APRN-CNP * Does person have difficulty doing errands alone? Answer Date of Assessment Author No 10/12/2019 8:59 PM Ulises Posey APRN-CNP documented as of this encounter Mental Status * Does person have difficulty concentrating/remembering/making decisions? Answer Entry Date Author No 10/12/2019 8:59 PM Ulises Posey APRN-CNP documented in this encounter Plan of Treatment Not on file documented as of this encounter Visit Diagnoses Not on filedocumented in this encounter Care Teams Endless Track Vehicle Mechanic Relationship Specialty Start Date End Date Jolene Smiley [address] [place] [phone] PCP - General 12/05/23 documented as of this encounter
== END 2025-08-05 17:50 | disposition home or self-care (01) ==
PROVIDERS: Preventive Medicine Aerospace Medicine; Emergency Provider Physician Assistant; PCP Family Medicine
DX: R07.89 Other chest pain (principal); R94.31 Abnormal electrocardiogram [ECG] [EKG]
CPT/HCPCS: 36415; 71046; 80053; 83690; 83880; 84484; 85025; 85380; 85610; 85730; 93005; 96374; 99284; J1885